=== PATIENT | male | born 1955 | race Caucasian/White ===

== ENCOUNTER 2020-04-23 15:11 | Emergency (ER) | payer MEDICAID, SELFPAY ==
--- NOTE | 2020-04-23 15:33 | ED.GENADULT ---
HPI - General Adult General Chief complaint: Upper Respiratory Symptoms Stated complaint: covid symptoms Time Seen by Provider: 04/23/20 15:19 Source: patient Mode of arrival: ambulatory Limitations: no limitations History of Present Illness HPI narrative: Sore throat and bilateral ear pain since yesterday. No fevers, chills or other upper respiratory symptoms. Currently residing at the [facility] and sent in for COVID testing. Onset (ago): day(s) ( One day) Radiation: non-radiation Severity: mild Relieving factors: none Exacerbating factors: none Associated symptoms: denies other symptoms Related Data Allergies Allergy/AdvReac Type Severity Reaction Status Date / Time No Known Allergies Allergy Unverified 04/02/20 17:11 [No Known Allergies*] Review of Systems Review of Systems: Yes all other systems are reviewed and are negative Constitutional: Constitutional: Reports no additional constitutional complaints, Denies body ache(s), Denies chills, Denies fever(s), Denies headache(s) and Denies weakness Eyes: Eyes: Reports no additional eye complaints and Denies change in vision ENT: Reports system reviewed and no additional complaints, except as documented, Denies dizziness, Reports otalgia, Denies headache(s), Denies nasal congestion, Denies nasal discharge, Denies neck pain and Reports sore throat Cardiovascular: Cardiovascular: Reports no additional cardiovascular complaints, Denies chest pain, Denies leg edema and Denies dyspnea Respiratory: Respiratory: Reports no additional respiratory complaints, Denies cough and Denies dyspnea Gastrointestinal: Gastrointestinal: Reports no additional gastrointestinal complaints, Denies abdominal pain, Denies diarrhea, Denies nausea and Denies vomiting Genitourinary: Genitourinary: Denies urinary incontinence Musculoskeletal: Musculoskeletal: Reports no additional musculoskeletal complaints, Denies back pain, Denies arthralgias, Denies joint swelling, Denies neck pain, Denies numbness and Denies tingling Integumentary/Breasts: Skin/Breast: Reports system reviewed and no additional complaints, except as docu and Denies rash Neurologic: Reports system reviewed and no additional complaints, except as documented, Denies Abnormal speech present, Denies dizziness, Denies headache(s), Denies numbness, Denies tingling and Denies weakness PMFSH Past Medical History Attestation statement: The following information was validated with the patient. Source: obtained from family and nursing notes reviewed Medical History Hernia Surgical History History of hernia surgery Social History Social History Smoking Status: Current every day smoker Use of substances other than those prescribed or required for medical reasons: No Advance Directives: No Advance Directives Information Provided: No Physical Exam Vital Signs and I&O and Narrative: Vital Signs and I&O: Vital Signs Temp 98.3 F 04/23/20 16:00 Pulse 88 04/23/20 16:00 Resp 18 04/23/20 16:00 BP 123/78 04/23/20 16:00 Pulse Ox 98 04/23/20 16:00 Intake & Output 04/22/20 04/23/20 04/23/20 18:59 06:59 18:59 Weight 70.307 kg Body Mass Index 23.6 Const: General: cooperative, healthy appearing, comfortable and no acute distress Orientation/consciousness: patient oriented x3 Limitations: no limitations HENMT: Head: Yes normal to inspection Ears: hearing grossly normal bilaterally General nose exam: Normal external nose present Face and sinus: Yes normal facial exam Mouth: Normal oral and palatal mucosa present Throat: Yes posterior oropharynx normal Eyes: General: appearance normal, both eyes and all related structures Pupils: Equal, round and reactive pupils present Neck: Neck: Yes normal visual inspection Chest: Chest palpation & inspection: normal inspection of the chest Resp: Effort & Inspection: normal respiratory effort Auscultation: clear to auscultation bilaterally Cardio: Rate: regular rate Rhythm: regular rhythm Peripheral pulses: Peripheral pulses 2+ throughout GI: Inspection: Yes normal to inspection Palpation (GI): Soft to palpation and nontender Auscultation: normal bowel sounds Back/Spine/Pelvis: Thoracic/Lumbar Spine: thoracic and lumbar spine normal to inspection Skin: General skin exam: no rashes or lesions noted Neuro: General: patient oriented x3, no focal motor deficits and normal sensation to monofilament Cranial nerves: Yes Equal, round and reactive pupils present Cognition (Neuro): normal cognition Speech: No Abnormal speech present Gait exam (Neuro): Normal gait present Motor exam (neuro): 5/5 motor strength present throughout Extrem: General: Yes normal to inspection Medical Decision Making MDM Narrative Medical decision making narrative: patient here with sore throat and earache since yesterday. Sent in from sober living for COVID testing. Well appearing. Stable vital signs. COVID testing sent. Reviewed worrisome signs and symptoms and when to return to the emergency department. Comfortable discharge home. Discharge Plan Discharge Clinical Impression: Viral infection Patient Disposition: Home, Self-Care Instructions: Viral Syndrome (ED) Additional Instructions: We will call you in 24-48 hrs with results Referrals: Sarina Clark MD [Primary Care Provider] - 2 days Interventions: ED Discharge Assessment Last Done: 04/23/20 16:19 Discharge Date/Time: 04/23/20 16:22
[2020-04-23 16:00] VITALS: BP 123/78; PULSE 88; RESP 18; TEMP 36.8; O2SAT 98; BMI 23.6
== END 2020-04-23 16:22 | disposition home or self-care (01) ==
PROVIDERS: Nurse Practitioner Family; Emergency Provider Internal Medicine; PCP Family Medicine
DX: B34.9 Viral infection, unspecified (principal); Z20.828 Contact with and (suspected) exposure to other viral communicable diseases; J02.9 Acute pharyngitis, unspecified; F17.200 Nicotine dependence, unspecified, uncomplicated
CPT/HCPCS: 87635; 99283

== ENCOUNTER 2021-11-25 09:32 | Emergency (ER) | payer MEDICAID, SELFPAY | END 2021-11-25 11:25 | disposition left against medical advice (07) | PROVIDERS: Emergency Provider Emergency Medicine; PCP Family Medicine | DX: B02.9 Zoster without complications (principal) ==

== ENCOUNTER 2021-12-01 17:53 | Inpatient (IN) | payer MEDICAID, SELFPAY ==
[2021-12-01 18:15] VITALS: BP 145/77; PULSE 70; RESP 16; TEMP 36.7; O2SAT 97
--- NOTE | 2021-12-01 19:43 | PC.ADMIT ---
pt is a 66 y/o Chinese male who arrived to to unit @18:05 from [facility] ED with diagnosis of opioid use disorder and SI. pt signed a cv upon arrival. Patient reports on 11/30, he had used some heroin without intentions to overdose. pt stated he was having a difficult day prior to use. Pt stated he eventually overdosed and was narcaned by bystanders who then rushed him to the hospital. Upon arrival, pt was found to be somnolent and another dose of narcan was administered. Pt reports he has no medical issues but stated he was diagnosed with Bipolar disorder, depression and anxiety. pt reports he is currently homeless, unemployed and has been in and out of several rehabs for opioid use. Prior to this admission, pt has no hx of inpatient psych admit. Patient is pleasant, calm, cooperative, pt reports mood as ok and stated he would like to go out and smoke. pt has active shingles however, lesions are crusted and appear to be healing appropriately. pt maintained appropriate eye contact and expression during admit assessment, speech is clear, coherent, and logical. pt offered no respiratory complaints, skin is warm and dry. vital signs are stable. pt ambulates independently. pt appears hemodynamically stable and offered no complaints. Pt does not appear to be withdrawing at the time of this writing; however, pt will continue to be monitored.
[2021-12-01] MEDS: traZODone HCL 50 MG TABLET PO (21:07)
[2021-12-01] MEDS: hydrOXYzine HCL 25 MG TABLET PO (21:07)
--- NOTE | 2021-12-02 05:24 | PC.NURSE ---
Hospitalist consult ordered. Dr. Cotto notified at 0182 on 12/02/2021. He confirmed the message at 0517 on 12/02/2021.
[2021-12-02 06:00] VITALS: BP 132/64; PULSE 71; RESP 19; TEMP 36.1; O2SAT 96
--- NOTE | 2021-12-02 08:56 | P.CONHOSP_ITS ---
History of Present Illness Data of Consult Service Date: 12/02/21 Primary Care Provider: Sarina Clark MD HPI Reason for consult: Routine Medical H&P 66 yo M admitted to [facility]. Medical consult requested for routine medical H&P per protocol. Patient is seen and examined in their room. They deny any medical complaints at this time with the exception of shingles on his back. He denies any pain. Unable to state when they started. Review of Systems Review of Systems: negative except HPI [facility] Medical History Hernia Surgical History History of hernia surgery Social History Household Members: Other Household Members Other:: pt homeless and lives at times in group home and w/friends Housing: Homeless Do you presently have visiting nurse or other home services: No Patient Tobacco Use Status: Current everyday Tobacco user Tobacco use type: Cigarette Smoked in Last 30 Days: Yes Patient Interested in Nicotine Replacement: Yes (pt states I would rather smoke a cigarette. ) Patient Given Instructions on How to Stop Smoking: No (pt declined smoking cessation) Use of substances other than those prescribed or required for medical reasons: Yes Substance Use Type: Crack/Cocaine, Heroin, IV Drugs, Marijuana, Opiates and Caffiene Substance Use Frequency: Daily Last Used Substance: Days (ago) Last Used Substance Other:: 11/30/21 Currently Displaying Signs/Symptoms of Drug Intoxication Withdrawal: No (Pt denies) Any prior treatment program specific to substance use: Yes (pt reports he was in rehab but relapsed) Have you been hit, kicked, punched, or otherwise hurt by someone within the past year? If so, by whom?: No Do you feel safe in your current relationship?: No Current Relationship Is there a partner from a previous relationship who is making you feel unsafe now?: No Are you made to feel afraid or neglected: No Advance Directives: No Advance Directives Information Provided: No Do you have thoughts of harming others: None Do you have a plan to hurt others: No Plan Recently lost weight without trying: No Poor oral hygiene: Yes Meds Allergies Allergy/AdvReac Type Severity Reaction Status Date / Time No Known Allergies Allergy Unverified 04/02/20 17:11 [No Known Allergies*] Active Medications: Current Medications Acetaminophen (Acetaminophen 325 Mg Tablet) 650 mg PO Q6H PRN PRN Reason: Headache/Pain Mild Scale (1-3) Al Hydroxide/Mg Hydroxide (Magnesium Hydrox/Alum Hydrox 30 Ml Oral.Susp) 30 ml PO Q6H PRN PRN Reason: Heartburn/Nausea Hydroxyzine HCl (Hydroxyzine Hcl 25 Mg Tablet) 25 mg PO BEDTIME PRN PRN Reason: Anxiety Last Admin: 12/01/21 21:07 Dose: 25 mg Documented by: Magnesium Hydroxide (Milk Of Magnesia 30 Ml Oral.Susp) 30 ml PO DAILY PRN PRN Reason: Constipation Trazodone HCl (Trazodone Hcl 50 Mg Tablet) 50 mg PO BEDTIME PRN PRN Reason: Insomnia Last Admin: 12/01/21 21:07 Dose: 50 mg Documented by: Physical Exam Vital Signs and Narrative: Vital Signs: Last Vital Signs Temp 98.1 F 12/01/21 18:15 Pulse 70 12/01/21 18:15 Resp 16 12/01/21 18:15 BP 145/77 H 12/01/21 18:15 Pulse Ox 97 12/01/21 18:15 Const: Other: General - no acute distress, appears comfortable Cardiovascular - regular rate and rhythm, S1-S2 Lungs - normal respiratory effort, clear to auscultation bilaterally, no wheezing Abdomen - soft, nontender, no rebound or guarding Extremities - no edema bilaterally Neuro - awake and alert, no focal deficits; cn 2-12 intact bilaterally Skin - no vesicles noted on the upper back, furthermore they do not appear to be in any specific dermatomal pattern; healing and crusting over Assessment and Plan (1) Routine medical exam: Status: Acute Plan 66 yo M admitted to inpatient psych. Medical consultation sought for routine medical H&P. Pt reports he has zoster and per med claim -- was prescribed valacyclovir on 11/22/20 - there are no active vesicles and do not appear to be in a specific dermatome. In either case, the lesions are now resolving and no vesicles are noted. Patient has been counseled on age appropriate health maintenance as an outpatient. Continue care per primary team. Will sign off. Please re-consult if any issues arise.
--- NOTE | 2021-12-02 14:10 | HO.PSYADMNOT ---
[facility] Date of Service: 12/02/21 Chief Complaint: Opioid disorder Sources of Information: patient interviewed, chart reviewed and crisis/core team assessment reviewed HPI Subjective Notes: Conditional Voluntary Narrative: The patient is a 66-year-old male, single, with no children, unemployed with unstable housing with poor social support referred from the emergency room for suicidal ideation. According to the crisis assessment and the emergency room report, the patient abused of heroin and he overdosed and a front of him use Narcan and called 911. While he was in the emergency room he needed to be treated with Narcan for a 2nd time. The patient was assessed by crisis and since he reported suicidal ideation he was referred to this facility for psychiatric stabilization. On interview the patient reported that he used to use heroin he has been using on and off for several years. He elected that his previous use before this time was 2 or 3 months ago. He stated that he has been feeling more depressed, with anhedonia, lack of energy and feelings of hopelessness. He stated that he had some suicidal thoughts. At the beginning of the interview, he stated that he wanted to finish it old but then later on he was able to contract for safety. Even though that he claimed to be depressed, he is absurd affect does not have correlation with the LAD aged mood. He denied psychotic symptoms such as auditory hallucinations or paranoia, he was able to contract for safety. He stated that he carries a diagnosis of bipolar disorder but he was noncompliant with treatment. He stated that he cannot pay for Vraylar that was prescribed by his primary care physician. Past Psychiatric History: Denies prior psychiatric admissions, denies following any treatment at this moment. Medical Evaluation Reviewed: Yes [facility] Medical History Hernia Surgical History History of hernia surgery Family History: Denies Social History: the patient is the youngest of 4 children, his milestones were achieved at expected age and he was raised mostly by his mother. He stated that his father was involved partially. He attended regular school and graduated. 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 He admitted that he has been using heroin and other drugs for quite a long time but he refused to elaborate. He stated that he has unstable housing for several years Substance History: opioids that started probably in the 20s he refused to elaborate about previous treatment. Also he admitted that he has abused some cocaine before of the incident of overdose. Trauma History: Denies, denies legal encounters Diagnostics Vital Signs (24Hr): Vital Signs - 24 hr 12/01/21 18:15 12/02/21 06:00 Temperature 98.1 F 96.9 F Pulse Rate 70 71 Respiratory Rate 16 19 Blood Pressure 145/77 H 132/64 Pulse Oximetry 97 96 Meds/Allergies Allergies Allergies Allergy/AdvReac Type Severity Reaction Status Date / Time No Known Allergies Allergy Unverified 04/02/20 17:11 [No Known Allergies*] Mental Status Exam Mental Status Exam Patient Appearance: Appropriate Patient Orientation: Person, Place and Situation Level of Consciousness: Awake Patient Behavior: Appropriate and Cooperative Mood Description: Withdrawn Affect Description: Constricted Patient Cognition Impaired: No Ability to Follow Directions: Good Speech Pattern: Clear Memory Description: Intact Hallucinations: None Delusions: Not Present Thought Process: Linear Thought Content: positive for Circumstantial Judgement: Fair Assessment & Plan Assessment & Plan (1) Mood disorder: Status: Acute Code(s): F39 - Unspecified mood [affective] disorder (2) Opioid use disorder: Status: Acute Code(s): F11.90 - Opioid use, unspecified, uncomplicated Plan the patient is an adult male, with limited social support with a long history of opiate use disorder and mood symptoms admitted after an overdose on heroin and fentanyl. He has several psychosocial stressors such as chronic homelessness, limited social support and chronic substance abuse. Plan 1. Gather collateral information. 2. The patient is not on opiate withdrawal well, at this moment no need of comfort meds or CIWA. 3. Start Zyprexa 2.5 mg p.o. q.h.s. as mood stabilizer. Patient educated on: diagnosis and substance abuse Guardian/Caregiver educated on: therapeutic strategies Informed Consent: understands Reason for continued inpatient stay Substantial Risk for: harm to self, inability to function, rapid decompensation and med/psych decompensation
[2021-12-02 14:32] VITALS: BMI 23.9
[2021-12-02] MEDS: Nicotine Polacrilex 2 MG GUM BUCCAL (17:54)
[2021-12-02 19:51] VITALS: BP 135/72; PULSE 72; RESP 16; TEMP 36.4; O2SAT 97
[2021-12-02] MEDS: hydrOXYzine HCL 25 MG TABLET PO (21:11)
[2021-12-02] MEDS: traZODone HCL 50 MG TABLET PO (21:11)
[2021-12-03] MEDS: traZODone HCL 50 MG TABLET PO ×2 (01:41→20:45)
[2021-12-03 07:45] VITALS: BP 124/62; PULSE 68; RESP 19; TEMP 36.2; O2SAT 100
--- NOTE | 2021-12-03 13:50 | PM.EVENT ---
Event Note Date of Service: 12/03/21 Event Note: Consult requested for shingle lesion left leg with redness surrounding Patient reports multiple lesions frequently - he refers to them as shingles and has had them all over numerous times before. was much worse last week. denies pain or itching. dry lesions with no active drainage. no fluctuance or induration. no warmth or tenderness. does not appear to be infected. no antibiotics indicated at this time can do chlorhexadine washes as outpatient outpatient follow up with dermatology avoid picking/scratching
--- NOTE | 2021-12-03 14:37 | PC.NURSE ---
Scabbing lesions noted left lower leg 1. dime sized 2. quarter sized with redness surrounding. No inflammation noted. Pt states lesions are due to shingles. No tenderness reported. Will continue to monitor. Scabbed lesions noted upper back. Guadalupe FARIAS evaluated lesions on left lower leg. States lesions are not infected and not related to shingles. Continue to monitor and keep clean.
--- NOTE | 2021-12-03 15:59 | HO.PSYCHPN ---
Subjective Subjective Date of Service: 12/03/21 Reason For Visit: Opioid disorder Subjective Notes: Conditional Voluntary Interim History: The nursing staff reported the patient slept with p.r.n. medication, he has been pleasant and cooperative. On interview the patient denies new symptoms he wants to smoker and he agreed to use the nicotine patches and gums. He reports some cravings to opioids and we discussed at length his treatment options. He does not want to go to the methadone clinic anymore, he stated that he stop treatment for more than a month ago and he is interested in trying naltrexone. We are starting now on mirtazapine and Zyprexa for mood stabilizing and depression. Mental Status Exam Mental Status Exam Patient Appearance: Well Grooomed Patient Orientation: Person, Place, Time and Situation Level of Consciousness: Awake Patient Behavior: Cooperative Mood Description: Calm Affect Description: Constricted Patient Cognition Impaired: No Ability to Follow Directions: Good Speech Pattern: Clear Memory Description: Intact Hallucinations: None Delusions: Not Present Thought Process: Linear Thought Content: positive for Circumstantial Judgement: Fair Diagnostics Vital Signs (24Hr): Vital Signs - 24 hr 12/02/21 19:51 12/03/21 07:45 Temperature 97.6 F 97.2 F Pulse Rate 72 68 Respiratory Rate 16 19 Blood Pressure 135/72 124/62 Pulse Oximetry 97 100 BMI result Body Mass Index 23.9 Medications Medications Current Medications Acetaminophen (Acetaminophen 325 Mg Tablet) 650 mg PO Q6H PRN PRN Reason: Headache/Pain Mild Scale (1-3) Al Hydroxide/Mg Hydroxide (Magnesium Hydrox/Alum Hydrox 30 Ml Oral.Susp) 30 ml PO Q6H PRN PRN Reason: Heartburn/Nausea Hydroxyzine HCl (Hydroxyzine Hcl 25 Mg Tablet) 25 mg PO BEDTIME PRN PRN Reason: Anxiety Last Admin: 12/02/21 21:11 Dose: 25 mg Documented by: Magnesium Hydroxide (Milk Of Magnesia 30 Ml Oral.Susp) 30 ml PO DAILY PRN PRN Reason: Constipation Nicotine Polacrilex (Nicotine Polacrilex 2 Mg Gum) 2 mg BUCCAL Q2H PRN PRN Reason: nicotine withdrawal Last Admin: 12/02/21 17:54 Dose: 2 mg Documented by: Trazodone HCl (Trazodone Hcl 50 Mg Tablet) 50 mg PO BEDTIME PRN PRN Reason: Insomnia Last Admin: 12/03/21 01:41 Dose: 50 mg Documented by: Allergies Allergies Allergy/AdvReac Type Severity Reaction Status Date / Time No Known Allergies Allergy Unverified 04/02/20 17:11 [No Known Allergies*] Assessment & Plan Assessment & Plan (1) Mood disorder: Status: Acute Code(s): F39 - Unspecified mood [affective] disorder (2) Opioid use disorder: Status: Acute Code(s): F11.90 - Opioid use, unspecified, uncomplicated Plan the patient is an adult male, with limited social support with a long history of opiate use disorder and mood symptoms admitted after an overdose on heroin and fentanyl. He has several psychosocial stressors such as chronic homelessness, limited social support and chronic substance abuse. Plan 1. Gather collateral information. 2. Start naltrexone 50 mg p.o. daily to target cravings. 3. Rest the same I spent ___20___ minutes with the patient and/or on the patient floor today, greater than?50% of which was spent counseling/coordinating care. Reason for contiued inpatient stay Substantial Risk for: inability to function, rapid decompensation and med/psych decompensation
[2021-12-03 18:00] VITALS: BP 136/75; PULSE 58; RESP 18; TEMP 36.5; O2SAT 98
[2021-12-03] MEDS: Mirtazapine 7.5 MG TABLET PO (20:42)
[2021-12-03] MEDS: OLANZapine 2.5 MG TABLET PO (20:42)
[2021-12-04 08:48] VITALS: BP 130/73; PULSE 63; RESP 16; TEMP 36.3; O2SAT 100
[2021-12-04] MEDS: Nicotine 21 MG PATCH.TD24 TRANSDERMA (09:02)
[2021-12-04] MEDS: Naltrexone HCl 50 MG TABLET PO (09:03)
--- NOTE | 2021-12-04 14:00 | HO.PSYCHPN ---
Subjective Subjective Date of Service: 12/04/21 Reason For Visit: depression Subjective Notes: Conditional Voluntary Interim History: Has been slightly withdrawn. Sleeping okay. Reports today that his mood is gradually getting better. No suicidal thoughts. Feeling well cared for. Does report feeling slightly more tired this morning. Reports appetite is good. Trying to attend groups. Noted discussion with primary team around potential for naltrexone. Otherwise no concerns regarding Remeron and Zyprexa. Medication Compliance: Yes Side effects from medications: No Attending Groups: Intermittent Review of Systems Acute medical concerns: No Medical Review of Systems: unchanged Review of Systems Review of Systems Unremarkable Mental Status Exam Mental Status Exam Patient Appearance: Well Grooomed Patient Orientation: Person, Place, Time and Situation Level of Consciousness: Awake Patient Behavior: Cooperative Mood Description: Calm Affect Description: Constricted Patient Cognition Impaired: No Ability to Follow Directions: Good Speech Pattern: Clear Memory Description: Intact Diagnostics Vital Signs (24Hr): Vital Signs - 24 hr 12/03/21 18:00 12/04/21 08:48 Temperature 97.7 F 97.4 F Pulse Rate 58 63 Respiratory Rate 18 16 Blood Pressure 136/75 130/73 Pulse Oximetry 98 100 BMI result Body Mass Index 23.9 Medications Medications Current Medications Acetaminophen (Acetaminophen 325 Mg Tablet) 650 mg PO Q6H PRN PRN Reason: Headache/Pain Mild Scale (1-3) Al Hydroxide/Mg Hydroxide (Magnesium Hydrox/Alum Hydrox 30 Ml Oral.Susp) 30 ml PO Q6H PRN PRN Reason: Heartburn/Nausea Hydroxyzine HCl (Hydroxyzine Hcl 25 Mg Tablet) 25 mg PO BEDTIME PRN PRN Reason: Anxiety Last Admin: 12/02/21 21:11 Dose: 25 mg Documented by: Magnesium Hydroxide (Milk Of Magnesia 30 Ml Oral.Susp) 30 ml PO DAILY PRN PRN Reason: Constipation Mirtazapine (Mirtazapine 7.5 Mg Tablet) 7.5 mg PO BEDTIME [facility] Last Admin: 12/03/21 20:42 Dose: 7.5 mg Documented by: Naltrexone HCl (Naltrexone Hcl 50 Mg Tablet) 50 mg PO DAILY [facility] Last Admin: 12/04/21 09:03 Dose: 50 mg Documented by: Nicotine (Nicotine 21 Mg Patch.Td24) 21 mg TRANSDERMA DAILY [facility] Last Admin: 12/04/21 09:02 Dose: 21 mg Documented by: Nicotine Polacrilex (Nicotine Polacrilex 2 Mg Gum) 2 mg BUCCAL Q2H PRN PRN Reason: nicotine withdrawal Last Admin: 12/02/21 17:54 Dose: 2 mg Documented by: Olanzapine (Olanzapine 2.5 Mg Tablet) 2.5 mg PO BEDTIME [facility] Last Admin: 12/03/21 20:42 Dose: 2.5 mg Documented by: Trazodone HCl (Trazodone Hcl 50 Mg Tablet) 50 mg PO BEDTIME PRN PRN Reason: Insomnia Last Admin: 12/03/21 20:45 Dose: 50 mg Documented by: Allergies Allergies Allergy/AdvReac Type Severity Reaction Status Date / Time No Known Allergies Allergy Unverified 04/02/20 17:11 [No Known Allergies*] Assessment & Plan Assessment & Plan (1) Mood disorder: Status: Acute Code(s): F39 - Unspecified mood [affective] disorder (2) Opioid use disorder: Status: Acute Code(s): F11.90 - Opioid use, unspecified, uncomplicated Plan the patient is an adult male, with limited social support with a long history of opiate use disorder and mood symptoms admitted after an overdose on heroin and fentanyl. He has several psychosocial stressors such as chronic homelessness, limited social support and chronic substance abuse. Plan 1. Gather collateral information. 2. Start naltrexone 50 mg p.o. daily to target cravings. 3. Rest the same 12/04/2021: No changes to primary team treatment plan I spent minutes with the patient and/or on the patient floor today, greater than?50% of which was spent counseling/coordinating care. Patient educated on: medication risk/benefits Informed Consent: understands Reason for contiued inpatient stay Substantial Risk for: rapid decompensation
[2021-12-04 18:00] VITALS: BP 132/71; PULSE 76; RESP 18; TEMP 36.8; O2SAT 99
[2021-12-04] MEDS: Nicotine Polacrilex 2 MG GUM BUCCAL (18:15)
[2021-12-04] MEDS: OLANZapine 2.5 MG TABLET PO (20:44)
[2021-12-04] MEDS: traZODone HCL 50 MG TABLET PO ×2 (20:44→21:58)
[2021-12-04] MEDS: Mirtazapine 7.5 MG TABLET PO (20:44)
[2021-12-05 08:40] VITALS: BP 134/69; PULSE 70; RESP 16; TEMP 36.4; O2SAT 98
[2021-12-05] MEDS: Naltrexone HCl 50 MG TABLET PO (09:32)
[2021-12-05] MEDS: Nicotine 21 MG PATCH.TD24 TRANSDERMA (09:32)
--- NOTE | 2021-12-05 13:29 | MHC.RECOVSUP ---
Recovery Support note: Patient is a 66 year old Hebrew speaking male on S1. This ticket writer attempted to meet with patient on 12/04 however he reported he was too tired to talk. On 12/05 patient was laying in bed however awake and willing to meet with this ticket writer. Patient reports using heroin nasally when I get bored , once a week or every other week. Patient reports he would like to stop using, acknowledging the risk of overdose and . Patient states it's all fentanyl, it's not even worth it. Patient reports no issues regarding the naltrexone however is unable to determine whether it has been helpful at this time. Discussed recovery supports with patient including [facility] [place], [facility] and recovery coaching. Patient reports he spends most of his time in [place] and [place]. Patient is agreeable to meeting with a volleyball coach to discuss community supports further and to receive information on recovery centers. Patient expressed interest in discharging, stating he would be able to find somewhere to go. Discussed with patient the benefit of getting into a program as opposed to going to a friend's place. Encouraged patient to discuss this further with his oncology social work tomorrow.
--- NOTE | 2021-12-05 14:31 | P.PNPSI_ITS ---
Subjective Subjective Date of Service: 12/05/21 Reason For Visit: depression Interim History: out of room more today. Frustrated regarding other patient on the unit who has been loud disruptive. Reports that his mood is in a much better space. He is hoping for discharge as soon as possible and reports having friends in places that he can stay. Adamantly denies suicidal thoughts. No psychosis or agitation. No medication concerns Medication Compliance: Yes Side effects from medications: No Attending Groups: Yes Review of Systems Acute medical concerns: No Review of Systems Review of Systems Unremarkable Mental Status Exam Mental Status Exam Patient Appearance: Well Grooomed Patient Orientation: Person, Place, Time and Situation Level of Consciousness: Awake Patient Behavior: Cooperative Mood Description: Calm Affect Description: Appropriate Patient Cognition Impaired: No Ability to Follow Directions: Good Speech Pattern: Clear Memory Description: Intact Diagnostics Vital Signs (24Hr): Vital Signs - 24 hr 12/04/21 18:00 12/05/21 08:40 Temperature 98.2 F 97.6 F Pulse Rate 76 70 Respiratory Rate 18 16 Blood Pressure 132/71 134/69 Pulse Oximetry 99 98 BMI result Body Mass Index 23.9 Medications Medications Current Medications Acetaminophen (Acetaminophen 325 Mg Tablet) 650 mg PO Q6H PRN PRN Reason: Headache/Pain Mild Scale (1-3) Al Hydroxide/Mg Hydroxide (Magnesium Hydrox/Alum Hydrox 30 Ml Oral.Susp) 30 ml PO Q6H PRN PRN Reason: Heartburn/Nausea Hydroxyzine HCl (Hydroxyzine Hcl 25 Mg Tablet) 25 mg PO BEDTIME PRN PRN Reason: Anxiety Last Admin: 12/02/21 21:11 Dose: 25 mg Documented by: Magnesium Hydroxide (Milk Of Magnesia 30 Ml Oral.Susp) 30 ml PO DAILY PRN PRN Reason: Constipation Mirtazapine (Mirtazapine 7.5 Mg Tablet) 7.5 mg PO BEDTIME [facility] Last Admin: 12/04/21 20:44 Dose: 7.5 mg Documented by: Naltrexone HCl (Naltrexone Hcl 50 Mg Tablet) 50 mg PO DAILY [facility] Last Admin: 12/05/21 09:32 Dose: 50 mg Documented by: Nicotine (Nicotine 21 Mg Patch.Td24) 21 mg TRANSDERMA DAILY [facility] Last Admin: 12/05/21 09:32 Dose: 21 mg Documented by: Nicotine Polacrilex (Nicotine Polacrilex 2 Mg Gum) 2 mg BUCCAL Q2H PRN PRN Reason: nicotine withdrawal Last Admin: 12/04/21 18:15 Dose: 2 mg Documented by: Olanzapine (Olanzapine 2.5 Mg Tablet) 2.5 mg PO BEDTIME [facility] Last Admin: 12/04/21 20:44 Dose: 2.5 mg Documented by: Trazodone HCl (Trazodone Hcl 50 Mg Tablet) 50 mg PO BEDTIME PRN PRN Reason: Insomnia Last Admin: 12/04/21 21:58 Dose: 50 mg Documented by: Allergies Allergies Allergy/AdvReac Type Severity Reaction Status Date / Time No Known Allergies Allergy Unverified 04/02/20 17:11 [No Known Allergies*] Assessment & Plan Assessment & Plan (1) Mood disorder: Status: Acute Code(s): F39 - Unspecified mood [affective] disorder (2) Opioid use disorder: Status: Acute Code(s): F11.90 - Opioid use, unspecified, uncomplicated Plan the patient is an adult male, with limited social support with a long history of opiate use disorder and mood symptoms admitted after an overdose on heroin and fentanyl. He has several psychosocial stressors such as chronic homelessness, limited social support and chronic substance abuse. Plan 1. Gather collateral information. 2. Start naltrexone 50 mg p.o. daily to target cravings. 3. Rest the same 12/05/2021: very eager for discharge. No changes to primary team treatment plan I spent minutes with the patient and/or on the patient floor today, greater than?50% of which was spent counseling/coordinating care. Reason for contiued inpatient stay Substantial Risk for: rapid decompensation
[2021-12-05 18:00] VITALS: BP 133/78; PULSE 73; RESP 14; TEMP 36.6; O2SAT 99
--- NOTE | 2021-12-05 18:39 | MHC.RECOVSUP ---
? Reason for consult Recovery Support o Current location: [address] o Identified substance use concern: Heroin - Support ? Intervention: o Community resources provided o Harm reduction discussion ? Plan: <del>o</del> <del>Referral</del> <del>to</del> <del>[facility]del> <del>o</del> <del>Bed</del> <del>search</del> <del>in</del> <del>progress</del> <del>to</del> <del>o</del> <del>Follow</del> <del>up</del> <del>tomorrow</del> <del>o</del> <del>Patient</del> <del>awaiting</del> <del>crisis</del> <del>evaluation</del> o Patient to follow up with [facility] after discharge ? Additional information: Met patient and we talk Harm reduction.. Patient was given resources to [facility] [place]...
[2021-12-05] MEDS: Mirtazapine 7.5 MG TABLET PO (19:34)
[2021-12-05] MEDS: traZODone HCL 50 MG TABLET PO ×2 (19:38→20:40)
[2021-12-05] MEDS: hydrOXYzine HCL 25 MG TABLET PO (21:47)
[2021-12-05] MEDS: OLANZapine 2.5 MG TABLET PO (21:48)
[2021-12-06 06:00] VITALS: BP 122/78; PULSE 69; RESP 18; TEMP 36.2; O2SAT 98
[2021-12-06] MEDS: Naltrexone HCl 50 MG TABLET PO (08:22)
[2021-12-06] MEDS: Nicotine 21 MG PATCH.TD24 TRANSDERMA (08:24)
--- NOTE | 2021-12-06 08:46 | P.PNPSI_ITS ---
Subjective Subjective Date of Service: 12/06/21 Reason For Visit: depression Subjective Notes: Conditional Voluntary Healthcare Proxy: No Guardianship: No Interim History: Patient depressed somewhat withdrawn open to addiction consult. Knows he picks a narcotics when bored he does understand risks particularly with fentanyl overdose and recently needed to be Narcan x2 Mental Status Exam Mental Status Exam Patient Appearance: Well Grooomed Patient Orientation: Person, Place, Time and Situation Level of Consciousness: Awake Patient Behavior: Cooperative Mood Description: Calm, Constricted and Apprehensive Affect Description: Appropriate Patient Cognition Impaired: No Ability to Follow Directions: Good Speech Pattern: Clear Memory Description: Intact Diagnostics Vital Signs (24Hr): Vital Signs - 24 hr 12/05/21 18:00 Temperature 97.9 F Pulse Rate 73 Respiratory Rate 14 Blood Pressure 133/78 Pulse Oximetry 99 BMI result Body Mass Index 23.9 Medications Medications Current Medications Acetaminophen (Acetaminophen 325 Mg Tablet) 650 mg PO Q6H PRN PRN Reason: Headache/Pain Mild Scale (1-3) Al Hydroxide/Mg Hydroxide (Magnesium Hydrox/Alum Hydrox 30 Ml Oral.Susp) 30 ml PO Q6H PRN PRN Reason: Heartburn/Nausea Hydroxyzine HCl (Hydroxyzine Hcl 25 Mg Tablet) 25 mg PO BEDTIME PRN PRN Reason: Anxiety Last Admin: 12/05/21 21:47 Dose: 25 mg Documented by: Magnesium Hydroxide (Milk Of Magnesia 30 Ml Oral.Susp) 30 ml PO DAILY PRN PRN Reason: Constipation Mirtazapine (Mirtazapine 7.5 Mg Tablet) 7.5 mg PO BEDTIME [facility] Last Admin: 12/05/21 19:34 Dose: 7.5 mg Documented by: Naltrexone HCl (Naltrexone Hcl 50 Mg Tablet) 50 mg PO DAILY [facility] Last Admin: 12/06/21 08:22 Dose: 50 mg Documented by: Nicotine (Nicotine 21 Mg Patch.Td24) 21 mg TRANSDERMA DAILY [facility] Last Admin: 12/06/21 08:24 Dose: 21 mg Documented by: Nicotine Polacrilex (Nicotine Polacrilex 2 Mg Gum) 2 mg BUCCAL Q2H PRN PRN Reason: nicotine withdrawal Last Admin: 12/04/21 18:15 Dose: 2 mg Documented by: Olanzapine (Olanzapine 2.5 Mg Tablet) 2.5 mg PO BEDTIME [facility] Last Admin: 12/05/21 21:48 Dose: 2.5 mg Documented by: Trazodone HCl (Trazodone Hcl 50 Mg Tablet) 50 mg PO BEDTIME PRN PRN Reason: Insomnia Last Admin: 12/05/21 20:40 Dose: 50 mg Documented by: Allergies Allergies Allergy/AdvReac Type Severity Reaction Status Date / Time No Known Allergies Allergy Unverified 04/02/20 17:11 [No Known Allergies*] Assessment & Plan Assessment & Plan (1) Mood disorder: Status: Acute Code(s): F39 - Unspecified mood [affective] disorder (2) Opioid use disorder: Status: Acute Code(s): F11.90 - Opioid use, unspecified, uncomplicated Plan the patient is an adult male, with limited social support with a long history of opiate use disorder and mood symptoms admitted after an overdose on heroin and fentanyl. He has several psychosocial stressors such as chronic homelessness, limited social support and chronic substance abuse. Plan 1. Gather collateral information. 2. Start naltrexone 50 mg p.o. daily to target cravings. 3. Rest the same 12/05/2021: very eager for discharge. No changes to primary team treatment plan 12/06/2021 Patient gives history of response to [facility]. Information given regarding bipolar disorder patient agreeable to addiction consult I spent minutes with the patient and/or on the patient floor today, greater than?50% of which was spent counseling/coordinating care. Reason for contiued inpatient stay Substantial Risk for: inability to function, rapid decompensation and med/psych decompensation
[2021-12-06] MEDS: Cariprazine HCl 1.5 MG CAPSULE PO (16:26)
[2021-12-06 18:00] VITALS: BP 128/77; PULSE 66; RESP 66; TEMP 36.3; O2SAT 99
[2021-12-06] MEDS: OLANZapine 2.5 MG TABLET PO (21:52)
[2021-12-06] MEDS: traZODone HCL 50 MG TABLET PO ×2 (21:53→23:12)
[2021-12-06] MEDS: hydrOXYzine HCL 25 MG TABLET PO (21:56)
[2021-12-07 07:10] VITALS: BP 110/66; PULSE 82; RESP 19; TEMP 36.6; O2SAT 98
[2021-12-07] MEDS: Naltrexone HCl 50 MG TABLET PO (09:12)
[2021-12-07] MEDS: Nicotine 21 MG PATCH.TD24 TRANSDERMA (09:14)
--- NOTE | 2021-12-07 16:31 | PM.EVENT ---
Event Note Date of Service: 12/07/21 Event Note: Addiction consult: Patient interested in restarting suboxone. Reports he is discharging in the morning and wants to return to [facility] for [facility] treatment Rec: -D/C Naltrexone -Suboxone 2mg QD to start -full note to follow
--- NOTE | 2021-12-07 17:06 | HO.PSYCHPN ---
Subjective Subjective Date of Service: 12/07/21 Reason For Visit: depression Subjective Notes: Conditional Voluntary Interim History: the nursing staff reported the patient has been fully compliant with treatment he slept well with trazodone. On interview the patient denies new symptoms he states that he is going to work with the staff for proper discharge. Mental Status Exam Mental Status Exam Patient Appearance: Well Grooomed Patient Orientation: Person, Place and Situation Level of Consciousness: Awake Patient Behavior: Guarded and Cooperative Mood Description: Withdrawn and Constricted Affect Description: Constricted Patient Cognition Impaired: No Ability to Follow Directions: Good Speech Pattern: Clear Hallucinations: None Delusions: Not Present Thought Process: Linear Thought Content: positive for Circumstantial Judgement: Fair Diagnostics Vital Signs (24Hr): Vital Signs - 24 hr 12/06/21 18:00 12/07/21 07:10 Temperature 97.4 F 97.9 F Pulse Rate 66 82 Respiratory Rate 66 H 19 Blood Pressure 128/77 110/66 Pulse Oximetry 99 98 BMI result Body Mass Index 23.9 Medications Medications Current Medications Acetaminophen (Acetaminophen 325 Mg Tablet) 650 mg PO Q6H PRN PRN Reason: Headache/Pain Mild Scale (1-3) Al Hydroxide/Mg Hydroxide (Magnesium Hydrox/Alum Hydrox 30 Ml Oral.Susp) 30 ml PO Q6H PRN PRN Reason: Heartburn/Nausea Cariprazine (Cariprazine Hcl 1.5 Mg Capsule) 1.5 mg PO DAILY [facility] Last Admin: 12/06/21 16:26 Dose: 1.5 mg Documented by: Hydroxyzine HCl (Hydroxyzine Hcl 25 Mg Tablet) 25 mg PO BEDTIME PRN PRN Reason: Anxiety Last Admin: 12/06/21 21:56 Dose: 25 mg Documented by: Magnesium Hydroxide (Milk Of Magnesia 30 Ml Oral.Susp) 30 ml PO DAILY PRN PRN Reason: Constipation Mirtazapine (Mirtazapine 7.5 Mg Tablet) 7.5 mg PO BEDTIME [facility] Last Admin: 12/06/21 21:55 Dose: Not Given Documented by: Naltrexone HCl (Naltrexone Hcl 50 Mg Tablet) 50 mg PO DAILY [facility] Last Admin: 12/07/21 09:12 Dose: 50 mg Documented by: Nicotine (Nicotine 21 Mg Patch.Td24) 21 mg TRANSDERMA DAILY [facility] Last Admin: 12/07/21 09:14 Dose: 21 mg Documented by: Nicotine Polacrilex (Nicotine Polacrilex 2 Mg Gum) 2 mg BUCCAL Q2H PRN PRN Reason: nicotine withdrawal Last Admin: 12/04/21 18:15 Dose: 2 mg Documented by: Olanzapine (Olanzapine 2.5 Mg Tablet) 2.5 mg PO BEDTIME [facility] Last Admin: 12/06/21 21:52 Dose: 2.5 mg Documented by: Trazodone HCl (Trazodone Hcl 50 Mg Tablet) 50 mg PO BEDTIME PRN PRN Reason: Insomnia Last Admin: 12/06/21 23:12 Dose: 50 mg Documented by: Allergies Allergies Allergy/AdvReac Type Severity Reaction Status Date / Time No Known Allergies Allergy Unverified 04/02/20 17:11 [No Known Allergies*] Assessment & Plan Assessment & Plan (1) Mood disorder: Status: Acute Code(s): F39 - Unspecified mood [affective] disorder (2) Opioid use disorder: Status: Acute Code(s): F11.90 - Opioid use, unspecified, uncomplicated Plan the patient is an adult male, with limited social support with a long history of opiate use disorder and mood symptoms admitted after an overdose on heroin and fentanyl. He has several psychosocial stressors such as chronic homelessness, limited social support and chronic substance abuse. Plan 1. Gather collateral information. 2. Start naltrexone 50 mg p.o. daily to target cravings. 3. Rest the same 4. start discharge planning I spent __20____ minutes with the patient and/or on the patient floor today, greater than?50% of which was spent counseling/coordinating care. Reason for contiued inpatient stay Substantial Risk for: inability to function, rapid decompensation and med/psych decompensation
[2021-12-07 20:22] VITALS: BP 127/73; PULSE 74; RESP 18; TEMP 36.8; O2SAT 97
[2021-12-07] MEDS: Mirtazapine 7.5 MG TABLET PO (20:41)
[2021-12-07] MEDS: OLANZapine 2.5 MG TABLET PO (20:41)
[2021-12-07] MEDS: traZODone HCL 50 MG TABLET PO (20:46)
[2021-12-08] MEDS: traZODone HCL 50 MG TABLET PO ×2 (01:15→20:05)
[2021-12-08 08:00] VITALS: BP 139/78; PULSE 91; RESP 19; TEMP 36.3; O2SAT 98
[2021-12-08] MEDS: Naltrexone HCl 50 MG TABLET PO (08:42)
--- NOTE | 2021-12-08 11:19 | HO.ADDICT_ITS ---
History of Present Illness Date of Service: 12/07/2021 Chief Complaint: depression Reason for Consult: opioid use disorder currently on naltrexone ?buprenorphine Requesting physician: Augustine Pierson Discussed with referring provider: Yes Sources of Information: patient interviewed and chart reviewed HPI Narrative: Patient is a 66 year old male currently admitted to unit for worsening depression and suicidal ideation. Consult requested as patient reported opioid use and was started on naltrexone at start of this admission. Patient seen by this customs entry writer and RSRN in room 177. Patient awake, alert, pleasant and engaged in interview. He reports several years of using heroin [place] on and off. States that his last was prior to admission. Reports using btwn 2-5 bags several days per week. Reports more than 20 substance related overdoses. Reports history of treatment for OUD with methadone (dose up to 80mg) and briefly buprenorphine. He is initially somewhat indifferent to treatment options for OUD, then verbalizing desire to restart buprenorphine. Reviewed triggers to opioid use, which patient identifies as boredom , but with further questioning appears to be related to ruminating thoughts. He was seen briefly at [facility] more than a year ago, and identified this site as preferable to him based on location. Unstable housing situation and limited to no social supports. Past Psychiatric History: Denies prior psychiatric admissions, denies following any treatment at this moment. Review of Systems Review of Systems Yes all other systems are reviewed and are negative Diagnostics Vital Signs (24Hr): Vital Signs - 24 hr 12/07/21 20:22 12/08/21 08:00 Temperature 98.2 F 97.3 F Pulse Rate 74 91 Respiratory Rate 18 19 Blood Pressure 127/73 139/78 Pulse Oximetry 97 98 BMI result Body Mass Index 23.9 Mental Status Exam Mental Status Exam Patient Appearance: Well Grooomed and Appropriate Level of Consciousness: Awake and Appropriate Patient Behavior: Appropriate, Talkative and Cooperative Affect Description: Cheerful Judgement: Fair Medications Medications Current Medications Acetaminophen (Acetaminophen 325 Mg Tablet) 650 mg PO Q6H PRN PRN Reason: Headache/Pain Mild Scale (1-3) Al Hydroxide/Mg Hydroxide (Magnesium Hydrox/Alum Hydrox 30 Ml Oral.Susp) 30 ml PO Q6H PRN PRN Reason: Heartburn/Nausea Cariprazine (Cariprazine Hcl 1.5 Mg Capsule) 1.5 mg PO DAILY [facility] Last Admin: 12/08/21 08:44 Dose: Not Given Documented by: Hydroxyzine HCl (Hydroxyzine Hcl 25 Mg Tablet) 25 mg PO BEDTIME PRN PRN Reason: Anxiety Last Admin: 12/06/21 21:56 Dose: 25 mg Documented by: Magnesium Hydroxide (Milk Of Magnesia 30 Ml Oral.Susp) 30 ml PO DAILY PRN PRN Reason: Constipation Mirtazapine (Mirtazapine 7.5 Mg Tablet) 7.5 mg PO BEDTIME [facility] Last Admin: 12/07/21 20:41 Dose: 7.5 mg Documented by: Nicotine (Nicotine 21 Mg Patch.Td24) 21 mg TRANSDERMA DAILY [facility] Last Admin: 12/08/21 08:43 Dose: Not Given Documented by: Nicotine Polacrilex (Nicotine Polacrilex 2 Mg Gum) 2 mg BUCCAL Q2H PRN PRN Reason: nicotine withdrawal Last Admin: 12/04/21 18:15 Dose: 2 mg Documented by: Olanzapine (Olanzapine 2.5 Mg Tablet) 2.5 mg PO BEDTIME [facility] Last Admin: 12/07/21 20:41 Dose: 2.5 mg Documented by: Trazodone HCl (Trazodone Hcl 50 Mg Tablet) 50 mg PO BEDTIME PRN PRN Reason: Insomnia Last Admin: 12/08/21 01:15 Dose: 50 mg Documented by: Allergies Allergies Allergy/AdvReac Type Severity Reaction Status Date / Time No Known Allergies Allergy Unverified 04/02/20 17:11 [No Known Allergies*] Assessment & Plan Assessment & Plan (1) Opioid use disorder: Status: Acute Code(s): F11.90 - Opioid use, unspecified, uncomplicated Assessment and Plan: * D/C Naltrexone * start Suboxone low dose 2mg and titrate as appropriate (can be done by outpatient provider as patient will be discharging) I spent ___35___ minutes with the patient and/or on the patient floor today, greater than?50% of which was spent counseling/coordinating care. PMFSH Past Medical History Medical History Hernia Surgical History Surgical History History of hernia surgery Social History Social History Household Members: Other Household Members Other:: pt homeless and lives at times in long term and w/friends Housing: Homeless Do you presently have visiting nurse or other home services: No Patient Tobacco Use Status: Current everyday Tobacco user Tobacco use type: Cigarette Smoked in Last 30 Days: Yes Patient Interested in Nicotine Replacement: Yes (pt states I would rather smoke a cigarette. ) Patient Given Instructions on How to Stop Smoking: No (pt declined smoking cessation) Use of substances other than those prescribed or required for medical reasons: Yes Substance Use Type: Crack/Cocaine, Heroin, IV Drugs, Marijuana, Opiates and Caffiene Substance Use Frequency: Daily Last Used Substance: Days (ago) Last Used Substance Other:: 11/30/21 Currently Displaying Signs/Symptoms of Drug Intoxication Withdrawal: No Any prior treatment program specific to substance use: Yes (pt reports he was in rehab but relapsed) Have you been hit, kicked, punched, or otherwise hurt by someone within the past year? If so, by whom?: No Do you feel safe in your current relationship?: No Current Relationship Is there a partner from a previous relationship who is making you feel unsafe now?: No Are you made to feel afraid or neglected: No Advance Directives: No Advance Directives Information Provided: No Do you have thoughts of harming others: None Do you have a plan to hurt others: No Plan Recently lost weight without trying: No Poor oral hygiene: Yes service: No Sexual orientation: Straight/Heterosexual
--- NOTE | 2021-12-08 14:57 | P.PNPSI_ITS ---
Subjective Subjective Date of Service: 12/08/21 Reason For Visit: depression Subjective Notes: Conditional Voluntary Interim History: Nursing staff reported the patient has been pleasant and cooperative. He is fully compliant with treatment. He is able to contract for safety. On interview the patient reports that he is doing fine, he met with Tami heredia from substance abuse program and he wants to going to Suboxone for opiate use disorder. Mental Status Exam Mental Status Exam Patient Appearance: Well Grooomed Patient Orientation: Person, Place, Time and Situation Level of Consciousness: Awake Patient Behavior: Cooperative Mood Description: Withdrawn Affect Description: Constricted Patient Cognition Impaired: No Ability to Follow Directions: Good Speech Pattern: Clear Memory Description: Intact Hallucinations: None Delusions: Not Present Thought Process: Intact Thought Content: positive for Circumstantial Judgement: Fair Diagnostics Vital Signs (24Hr): Vital Signs - 24 hr 12/07/21 20:22 12/08/21 08:00 Temperature 98.2 F 97.3 F Pulse Rate 74 91 Respiratory Rate 18 19 Blood Pressure 127/73 139/78 Pulse Oximetry 97 98 BMI result Body Mass Index 23.9 Medications Medications Current Medications Acetaminophen (Acetaminophen 325 Mg Tablet) 650 mg PO Q6H PRN PRN Reason: Headache/Pain Mild Scale (1-3) Al Hydroxide/Mg Hydroxide (Magnesium Hydrox/Alum Hydrox 30 Ml Oral.Susp) 30 ml PO Q6H PRN PRN Reason: Heartburn/Nausea Cariprazine (Cariprazine Hcl 1.5 Mg Capsule) 1.5 mg PO DAILY [facility] Last Admin: 12/08/21 08:44 Dose: Not Given Documented by: Hydroxyzine HCl (Hydroxyzine Hcl 25 Mg Tablet) 25 mg PO BEDTIME PRN PRN Reason: Anxiety Last Admin: 12/06/21 21:56 Dose: 25 mg Documented by: Magnesium Hydroxide (Milk Of Magnesia 30 Ml Oral.Susp) 30 ml PO DAILY PRN PRN Reason: Constipation Mirtazapine (Mirtazapine 7.5 Mg Tablet) 7.5 mg PO BEDTIME [facility] Last Admin: 12/07/21 20:41 Dose: 7.5 mg Documented by: Nicotine (Nicotine 21 Mg Patch.Td24) 21 mg TRANSDERMA DAILY [facility] Last Admin: 12/08/21 08:43 Dose: Not Given Documented by: Nicotine Polacrilex (Nicotine Polacrilex 2 Mg Gum) 2 mg BUCCAL Q2H PRN PRN Reason: nicotine withdrawal Last Admin: 12/04/21 18:15 Dose: 2 mg Documented by: Olanzapine (Olanzapine 2.5 Mg Tablet) 2.5 mg PO BEDTIME [facility] Last Admin: 12/07/21 20:41 Dose: 2.5 mg Documented by: Trazodone HCl (Trazodone Hcl 50 Mg Tablet) 50 mg PO BEDTIME PRN PRN Reason: Insomnia Last Admin: 12/08/21 01:15 Dose: 50 mg Documented by: Allergies Allergies Allergy/AdvReac Type Severity Reaction Status Date / Time No Known Allergies Allergy Unverified 04/02/20 17:11 [No Known Allergies*] Assessment & Plan Assessment & Plan (1) Opioid use disorder: Status: Acute Code(s): F11.90 - Opioid use, unspecified, uncomplicated Assessment and Plan: * D/C Naltrexone * start Suboxone low dose 2mg and titrate as appropriate (can be done by outpatient provider as patient will be discharging) I spent __20____ minutes with the patient and/or on the patient floor today, greater than?50% of which was spent counseling/coordinating care. Reason for contiued inpatient stay Substantial Risk for: inability to function, rapid decompensation and med/psych decompensation
[2021-12-08 20:03] VITALS: BP 137/71; PULSE 70; RESP 16; TEMP 36.3; O2SAT 100
[2021-12-08] MEDS: Mirtazapine 7.5 MG TABLET PO (20:05)
[2021-12-08] MEDS: OLANZapine 2.5 MG TABLET PO (20:05)
--- NOTE | 2021-12-09 07:59 | PM.PSYDC ---
DS: Providers Provider Date of Service: 12/09/21 Date of admission: 12/01/21 17:53 Date of discharge: 12/09/21 Primary care physician: Sarina Clark MD Consults: 12/01/21 20:34 Consult to Hospitalist Routine Consulting Provider: Hospitalist Reason For Exam: OSH admission 12/03/21 11:06 Consult to Hospitalist Routine Consulting Provider: Hospitalist Reason For Exam: shingle lesion left leg with redness surrounding 12/06/21 22:14 Addiction Medicine Routine Consulting Provider: Tami Wyatt Reason for consultation: naltrexone vs suboxone ? recommendations Has provider been notified: No Attending physician on discharge: Hari Smith DS: Diagnosis Discharge Diagnosis (1) Opioid use disorder: Status: Acute Mental Status Exam Mental Status Exam Patient Appearance: Well Grooomed Patient Orientation: Person, Place, Time and Situation Level of Consciousness: Awake and Appropriate Patient Behavior: Cooperative Mood Description: Calm Affect Description: Appropriate Patient Cognition Impaired: No Ability to Follow Directions: Good Speech Pattern: Clear Memory Description: Intact Hallucinations: None Delusions: Not Present Thought Process: Intact, Goal Oriented and Linear Thought Content: positive for Circumstantial Judgement: Fair DS: Summary Hospital Course Hospital Course: The patient was admitted from the ED due to suicidal ideation, please see the HPI of the admission note for further details. On admission, he reported that besides carrying the diagnosis of opioid use disorder, he has bipolar disorder but currently, he was not taking any medications since the copayment of Vraylar was very expensive. We discussed, risks, benefits, side effects and alternatives and he agreed to start Zyprexa as a mood stabilizer and Remeron as an antidepressant. The patient was able to participate on groups, he was future oriented and he adamantly denied suicidal ideation. We discussed about treatment options regarding opioid use disorder and he initially liked Naltrexone but later, after consultation with our substance abuse prescriber, he asked to go to a Suboxone clinic so Naltrexone was discontinued. Since there were no safety concerns, and the patient reported improvement of his symptoms, discharge planning was discussed. Time spent discussing smoking cessation with patient: 3 to 10 minutes Status at Discharge Cognitive/behavioral status at discharge: At baseline Functional status at discharge: independent ambulation Overall status at discharge: patient is back to baseline Time Spent with Patient Time attestation: Total time spent providing and/or coordinating discharge services: Time spent: Less than 30 minutes Discharge Plan Discharge Patient Disposition: Home, Self-Care Discharge Diagnosis: Bipolar disorder Opioid use disorder Referrals: [facility] (therapists) [Other] - 12/09/21 1:00 pm (Appt scheduled with Unique Shearer IN OFFICE on , 12/09/21 @ 1 PM.) [facility] (medication prescriber) [Other] - 01/04/22 1:40 pm (Initial appt scheduled for 01/04/22 @ 1:40 PM with [facility]. Second appt scheduled for 02/01/22 @ 10:20 AM with [facility].) Sarina Clark MD [Primary Care Provider] - 1 Week Discharge Medications: New trazodone 50 mg Tablet 50 mg PO BEDTIME PRN (Reason: Insomnia) 30 Days Qty: 30 0RF olanzapine 2.5 mg Tablet 2.5 mg PO BEDTIME 30 Days Qty: 30 0RF mirtazapine 7.5 mg Tablet 7.5 mg PO BEDTIME 30 Days Qty: 30 0RF naloxone [Narcan] 4 mg/actuation spray,non-aerosol 4 mg intranasal Q3M PRN (Reason: opioid overdose) Qty: 2 0RF Rx Instructions: spray 1 dose into ONE nostril; alternate nostrils w each dose until help arrives Discharge Orders: Discharge Order (Routine); Ordered 12/09/21 Ordered By: Hari Smith Diet: advance to usual diet Activity on Discharge: As tolerated Stand Alone Forms: Patient Portal Discharge page Care Plan Goals: Care plan goals achieved on this admission Health Concerns: Follow up with outpatient PCP Plan of Treatment: Continue medication management Substance use disorder treatment Assessment: Adult male with mood disorder, substance abuse disorder and several psychosocial stressors, admitted for suicidality, restarted on mood stabilizers and psychotropics with a referral to Suboxone Clinic. No safety concerns at this moment.
[2021-12-09] MEDS: Nicotine 21 MG PATCH.TD24 TRANSDERMA (09:15)
[2021-12-09] MEDS: Cariprazine HCl 1.5 MG CAPSULE PO (09:15)
--- NOTE | 2021-12-09 09:55 | PC.NURSE ---
patient is alert and oriented x4. He is pleasant, calm and cooperative. Speech is clear, logical and coherent. Patient is independent care and ambulation. Patient reports feeling great this morning and ready for discharge. Discharge education and materials provided to patient. Belongings accounted for and also given to patient
== END 2021-12-09 11:30 | disposition home or self-care (01) | DRG 753 ==
PROVIDERS: Admitting Provider Psychiatry & Neurology Psychiatry; PCP Family Medicine; Visit Provider Psychiatry & Neurology Psychiatry
DX: F31.9 Bipolar disorder, unspecified (principal); R45.851 Suicidal ideations; F11.20 Opioid dependence, uncomplicated; F17.210 Nicotine dependence, cigarettes, uncomplicated; Z59.01 Sheltered homelessness; Z71.6 Tobacco abuse counseling; Z79.899 Other long term (current) drug therapy

== ENCOUNTER 2021-12-10 11:20 | Emergency (ER) | payer MEDICAID, SELFPAY ==
[2021-12-10 11:27] VITALS: BP 110/82; BP 115/80; PULSE 104; PULSE 87; RESP 18; TEMP 37.5; O2SAT 96; O2SAT 98; BMI 25.8
--- NOTE | 2021-12-10 11:35 | ED.PSYCH ---
HPI - Psych General Chief Complaint: Psychiatric Symptoms Stated Complaint: SI,VOLUNTARY,CALM/COOP PER EMS Time Seen by Provider: 12/10/21 11:35 Source: patient and EMS Mode of arrival: EMS Limitations: no limitations History of Present Illness HPI Narrative: 66 y/o male with history of opioid use disorder, mood disorder just discharged from yesterday who presents back to the ER with suicidal ideation with plan to jump in front of a car. He reports being discharged too soon because he wanted cigarettes. He went to his friends house last night and had worsening depression. He states he woke up this morning not feeling good at all. He wants to be admitted again. He denies recent drug use, last used 1 week ago before admission. MD complaint: suicidal ideation and feels depressed Onset (ago): unknown History of same: Yes Relieving factors: medication and therapy Exacerbating factors: none Associated psychiatric symptoms: depression and suicidal ideation Associated symptoms: headache Treatments prior to arrival: placed on mental health hold If self harm: admits thoughts of self harm and has plan Details of plan: jump in front of car Related Data Previous Rx's Medication Instructions Recorded mirtazapine 7.5 mg tablet 7.5 mg PO BEDTIME 30 Days #30 tab 12/09/21 naloxone 4 mg/actuation nasal 4 mg INTRANASAL Q3M PRN #2 ea 12/09/21 spray (Narcan) olanzapine 2.5 mg tablet 2.5 mg PO BEDTIME 30 Days #30 tab 12/09/21 trazodone 50 mg tablet 50 mg PO BEDTIME PRN 30 Days #30 12/09/21 tab Allergies Allergy/AdvReac Type Severity Reaction Status Date / Time No Known Allergies Allergy Unverified 04/02/20 17:11 [No Known Allergies*] Review of Systems Review of Systems: Constitutional: No Fever, No Chills ENT/Mouth: No sore throat, No Rhinorrhea, No Swallowing Difficulty Eyes: No Eye Pain, No Swelling, No Redness Cardiovascular: No Chest Pain, No SOB, No Orthopnea, No Edema Respiratory: No Cough, No Sputum, No Wheezing, No dyspnea Gastrointestinal: No Nausea, No Vomiting, No Diarrhea, No abdominal Pain Genitourinary: No Dysuria, No Urinary Frequency, No Hematuria Musculoskeletal: No joint pain, No Myalgias Skin: No Skin Lesions, No rash Neuro: No Weakness, No Numbness, + Dizziness, + Headache Psych: + Anxiety/Panic, + Depression, +SI, No HI, No AH/VH Heme/Lymph: No Bruising, No Lymphadenopathy Endocrine: No Polyuria, No Polydipsia PMFSH Past Medical History Medical History Hernia Surgical History History of hernia surgery Social History Social History Household Members: Other Household Members Other:: pt homeless and lives at times in skilled nursing and w/friends Housing: Homeless Do you presently have visiting nurse or other home services: No Alcohol intake: current Alcohol intake frequency: does not drink Patient Tobacco Use Status: Current everyday Tobacco user Tobacco use type: Cigarette Smoked in Last 30 Days: Yes Use of substances other than those prescribed or required for medical reasons: Refusing to respond Substance Use Type: Crack/Cocaine, Heroin, IV Drugs, Marijuana, Opiates and Caffiene Advance Directives: No Advance Directives Information Provided: No service: No Sexual orientation: Straight/Heterosexual Physical Exam Vital Signs: Vital Signs: Last Vital Signs Temp 99.5 F 12/10/21 11:27 Pulse 87 12/10/21 11:27 Resp 16 12/10/21 12:00 BP 115/80 12/10/21 11:27 Pulse Ox 98 12/10/21 11:27 BMI result Body Mass Index 25.8 Appearance: Alert. Oriented X3. No acute distress. Eyes: Pupils equal, round and reactive to light. ENT: Pharynx normal. Neck: Normal inspection. Neck supple. CVS: Normal heart rate and rhythm. Pulses normal. Respiratory: No respiratory distress. Breath sounds normal. Abdomen: Soft and nontender. +BS x4 Skin: Skin warm and dry. Normal skin color. Normal skin turgor. No rashes. Extremities: No lower extremity edema. Neuro: Oriented X 3. No motor deficit. No sensory deficit. CN II-XII intact. Course Course Course Narrative: 66 y/o male with history of mood disorder, substance use disorder, recent admission to presenting back within 24 of discharge with ongoing SI and depression. SW from [facility] to come speak with him. Labs are unremarkable. Will placing physician observation. Physician observation started at 12:58am. Patient placed in physician observation because patient is awaiting [facility] evaluation for the possible need of inpatient psych admission. At the time observation was started patient's vital signs were stable. Patient is alert and oriented. Neuro exam is non-focal. CV: RRR and lungs are clear. Will continue to monitor. Reevaluation(s) Reevaluation #1: Patient seen by the care team. He will be discharged to the living room. He is outpatient resources not actively suicidal. Stable for DC. Physician observation discontinued at this time. Dispo is to the living room. Time: 13:52 [facility] - Psych Lab Data Result diagrams: 12/10/21 11:54 12/10/21 11:54 Labs: Lab Results 12/10/21 12/10/21 12/10/21 Range/Units 11:54 11:54 11:54 WBC 6.9 (4.8-10.8) X10*3/uL RBC 4.78 (4.60-5.80) X10*6/uL Hgb 15.0 (14.0-18.0) g/dl Hct 44.0 (42.0-52.0) % MCV 92.1 (80.0-98.0) fL MCH 31.4 (27.0-33.0) pg MCHC 34.1 (31.0-36.0) g/dl RDW 13.5 (11.0-16.0) % Plt Count 222 (160-400) X10*3/uL MPV 9.6 (9.4-12.4) fL Immature Gran % (Auto) 0.4 (0.0-0.4) % Neut % (Auto) 64.1 (45-73) % Lymph % (Auto) 26.8 (20-40) % Callaway % (Auto) 6.1 (2-11) % Eos % (Auto) 1.6 (0-4) % Baso % (Auto) 1.0 (0-2) % Lymph # (Auto) 1.8 (1.2-4.9) X10*3/uL Callaway # (Auto) 0.4 (0.1-1.2) X10*3/uL Eos # (Auto) 0.1 (0.0-0.4) X10*3/uL Baso # (Auto) 0.1 (0.0-0.2) X10*3/uL Abs Immat Gran (auto) 0.03 (0.00-0.03) X10*3/uL Absolute Neuts (auto) 4.4 (2.0-8.3) x10*3/uL Absolute Nucleated RBC 0.000 (0.0-0.012) X10*3/uL Nucleated RBC % (auto) 0.0 (0.0-0.2) /100WBC Sodium 140 (135-145) mmol/L Potassium 4.3 (3.3-5.1) mmol/L Chloride 106 (96-108) mmol/L Carbon Dioxide 26 (22-29) mmol/L Anion Gap 12 (12-20) BUN 13 (9-16) mg/dL Creatinine 1.28 (0.5-1.4) mg/dL Estim Creat Clear Calc 51.2 Estimated GFR 56 Random Glucose 91 (60-115) mg/dL Calcium 9.4 (8.4-10.2) mg/dL Total Bilirubin 0.7 (0.0-1.0) mg/dL Direct Bilirubin 0.2 (0.0-0.5) mg/dL AST 12 (5-37) U/L ALT 11 (0-40) U/L Alkaline Phosphatase 58 (39-117) U/L Total Protein 7.1 (6.5-8.0) g/dL Albumin 4.1 (3.5-5.0) g/dL Urine Opiates Screen (Not Detect) Urine Fentanyl Screen (Not Detect) Ur Barbiturates Screen (Not Detect) Ur Phencyclidine Scrn (Not Detect) Ur Amphetamines Screen (Not Detect) U Benzodiazepines Scrn (Not Detect) Urine Cocaine Screen (Not Detect) U Marijuana (THC) Screen (Not Detect) Ethyl Alcohol mg/dL COVID-19 (ZACH) Negative (Negative) COVID-19 Clin Com See Note Influenza Type A (IGNACIO) (Negative) Influenza Type B (IGNACIO) (Negative) Influenza A & B Note 12/10/21 12/10/21 12/10/21 Range/Units 11:54 12:09 13:10 WBC (4.8-10.8) X10*3/uL RBC (4.60-5.80) X10*6/uL Hgb (14.0-18.0) g/dl Hct (42.0-52.0) % MCV (80.0-98.0) fL MCH (27.0-33.0) pg MCHC (31.0-36.0) g/dl RDW (11.0-16.0) % Plt Count (160-400) X10*3/uL MPV (9.4-12.4) fL Immature Gran % (Auto) (0.0-0.4) % Neut % (Auto) (45-73) % Lymph % (Auto) (20-40) % Callaway % (Auto) (2-11) % Eos % (Auto) (0-4) % Baso % (Auto) (0-2) % Lymph # (Auto) (1.2-4.9) X10*3/uL Callaway # (Auto) (0.1-1.2) X10*3/uL Eos # (Auto) (0.0-0.4) X10*3/uL Baso # (Auto) (0.0-0.2) X10*3/uL Abs Immat Gran (auto) (0.00-0.03) X10*3/uL Absolute Neuts (auto) (2.0-8.3) x10*3/uL Absolute Nucleated RBC (0.0-0.012) X10*3/uL Nucleated RBC % (auto) (0.0-0.2) /100WBC Sodium (135-145) mmol/L Potassium (3.3-5.1) mmol/L Chloride (96-108) mmol/L Carbon Dioxide (22-29) mmol/L Anion Gap (12-20) BUN (9-16) mg/dL Creatinine (0.5-1.4) mg/dL Estim Creat Clear Calc Estimated GFR Random Glucose (60-115) mg/dL Calcium (8.4-10.2) mg/dL Total Bilirubin (0.0-1.0) mg/dL Direct Bilirubin (0.0-0.5) mg/dL AST (5-37) U/L ALT (0-40) U/L Alkaline Phosphatase (39-117) U/L Total Protein (6.5-8.0) g/dL Albumin (3.5-5.0) g/dL Urine Opiates Screen Not Detected (Not Detect) Urine Fentanyl Screen POSITIVE H (Not Detect) Ur Barbiturates Screen Not Detected (Not Detect) Ur Phencyclidine Scrn Not Detected (Not Detect) Ur Amphetamines Screen Not Detected (Not Detect) U Benzodiazepines Scrn Not Detected (Not Detect) Urine Cocaine Screen Not Detected (Not Detect) U Marijuana (THC) Screen Not Detected (Not Detect) Ethyl Alcohol < 10 mg/dL COVID-19 (ZACH) (Negative) COVID-19 Clin Com Influenza Type A (IGNACIO) Negative (Negative) Influenza Type B (IGNACIO) Negative (Negative) Influenza A & B Note See Note Discharge Plan Discharge Clinical Impression: Depression Patient Disposition: Home, Self-Care Instructions: Depression (DC) Additional Instructions: Follow up with the Living Room upon discharge Do not use drugs Take all of your prescribed medications as directed Follow up with your doctor and therapist as soon as possible. Prescriptions: No Action trazodone 50 mg Tablet 50 mg PO BEDTIME PRN (Reason: Insomnia) 30 Days Qty: 30 0RF olanzapine 2.5 mg Tablet 2.5 mg PO BEDTIME 30 Days Qty: 30 0RF mirtazapine 7.5 mg Tablet 7.5 mg PO BEDTIME 30 Days Qty: 30 0RF naloxone [Narcan] 4 mg/actuation spray,non-aerosol 4 mg intranasal Q3M PRN (Reason: opioid overdose) Qty: 2 0RF Rx Instructions: spray 1 dose into ONE nostril; alternate nostrils w each dose until help arrives
[2021-12-10 12:00] VITALS: RESP 16
[2021-12-10 12:05] LABS: MANUAL DIFF FLAG NO
[2021-12-10 12:06] LABS: Basophils Absolute Auto 0.1 X10*3/uL (0.0-0.2); Eosinophils Absolute Auto 0.1 X10*3/uL (0.0-0.4); Eosinophils Percent Auto 1.6 % (0-4); Imm Gran Abs Auto 0.03 X10*3/uL (0.00-0.03); Imm Gran Pct Auto 0.4 % (0.0-0.4); Lymphocytes Absolute Auto 1.8 X10*3/uL (1.2-4.9); Lymphocytes Percent Auto 26.8 % (20-40); Mean Corpuscular HGB Conc 34.1 g/dl (31.0-36.0); Mean Corpuscular Hemoglobin 31.4 pg (27.0-33.0); Mean Corpuscular Volume 92.1 fL (80.0-98.0); Mean Platelet Volume 9.6 fL (9.4-12.4); Monocytes Absolute Auto 0.4 X10*3/uL (0.1-1.2); Monocytes Percent Auto 6.1 % (2-11); Neutrophils Absolute Auto 4.4 x10*3/uL (2.0-8.3); Neutrophils Percent Auto 64.1 % (45-73); Platelet Count 222 X10*3/uL (160-400); Red Blood Count 4.78 X10*6/uL (4.60-5.80); Red Cell Distribution Width 13.5 % (11.0-16.0); White Blood Count 6.9 X10*3/uL (4.8-10.8)
[2021-12-10 12:26] LABS: Ethanol < 10 mg/dL
[2021-12-10 12:28] LABS: Alanine Aminotransferase 11 U/L (0-40); Albumin Level 4.1 g/dL (3.5-5.0); Alkaline Phosphatase 58 U/L (39-117); Anion Gap 12 (12-20); Aspartate Amino Transferase 12 U/L (5-37); Bilirubin Direct 0.2 mg/dL (0.0-0.5); Bilirubin Total 0.7 mg/dL (0.0-1.0); Blood Urea Nitrogen 13 mg/dL (9-16); Calcium 9.4 mg/dL (8.4-10.2); Carbon Dioxide 26 mmol/L (22-29); Chloride 106 mmol/L (96-108); Creatinine Clr Calc Pharmacy 51.2; Estimated Glomerular Filt Rate 56; Glucose Random 91 mg/dL (60-115); Potassium 4.3 mmol/L (3.3-5.1); Sodium 140 mmol/L (135-145); Total Protein 7.1 g/dL (6.5-8.0)
[2021-12-10 12:35] LABS: IDNOW Serial# 55D5AD1C; Influenza A Negative (Negative); Influenza B2 Negative (Negative)
[2021-12-10 12:38] LABS: COVID-19 Test Negative (Negative); IDNOW Serial# 08D9AD1C
--- NOTE | 2021-12-10 13:39 | MHC.CARE ---
Pt is a 66 year old male who re-presented to [facility] after being discharged from the inpatient psychiatric unit on 12/09. Pt expressed passive SI which appears to be in the context of housing instability. CARE Team and Pt discussed different levels care. Pt expressed interest in the Living Room in [place]. CARE Team spoke with the Living Room who will tien Pt an overnight stay. Pt is in agreement to go to the Living Room and follow up with treatment recommendations from his discharge yesterday 12/09 by in the inpatient psychiatric team. CARE Team provided this information to JARRETT Garay. Pt provided with [facility] crisis information.
[2021-12-10 13:45] LABS: Amphetamine Screen Urine Not Detected (Not Detect); Barbiturates, Urine Not Detected (Not Detect); Benzodiazepines Screen Urine Not Detected (Not Detect); Cannabinoid Screen Urine Not Detected (Not Detect); Cocaine Screen Urine Not Detected (Not Detect); Fentanyl, urine POSITIVE (Not Detect); Opiate Screen Urine Not Detected (Not Detect); Phencyclidine Screen Urine Not Detected (Not Detect)
[2021-12-10 14:36] LABS: Appearance Urine CLEAR; Color Urine YELLOW; Glucose Urine UA NEG (NEG); Leukocyte Esterase Urine NEG (NEG); Nitrite Urine NEG (NEG); UACC Culture Trigger NO; Urine Blood TRACE (NEG); Urine Ketones NEG (NEG); Urine Protein NEG (NEG-TRACE)
[2021-12-10 14:46] LABS: Mucus Urine TRACE /LPF; Squamous Epithelial Cell Urine TRACE /LPF; WBC Urine 0-2 /HPF (0-4)
== END 2021-12-10 14:41 | disposition home or self-care (01) ==
PROVIDERS: Physician Assistant; Emergency Provider Emergency Medicine
DX: F32.A Depression, unspecified (principal); R45.851 Suicidal ideations; F11.90 Opioid use, unspecified, uncomplicated; F41.9 Anxiety disorder, unspecified; F17.200 Nicotine dependence, unspecified, uncomplicated; Z79.899 Other long term (current) drug therapy; Z20.822 Contact with and (suspected) exposure to COVID-19
CPT/HCPCS: 36415; 80053; 80307; 81001; 81003; 82077; 82248; 85025; 87502; 87635; 99284

== ENCOUNTER 2022-04-15 21:24 | Emergency (ER) | payer MEDICAID, SELFPAY ==
--- NOTE | ~2022-04-15 | XR_ITS ---
EXAMINATION: XR CHEST 2 VIEWS CLINICAL INFORMATION: Cough. COMPARISON: None. TECHNIQUE: Frontal and lateral views of the chest were obtained. FINDINGS: The heart, great vessels, pulmonary vasculature and mediastinum are normal. The lungs show no focal infiltrate, effusion or pneumothorax. There is no acute osseous abnormality. XR/XR chest 2V IMPRESSION: No active cardiopulmonary disease.
[2022-04-15 21:30] VITALS: BP 122/78; BP 127/68; PULSE 95; PULSE 96; RESP 17; TEMP 36.8; O2SAT 97; O2SAT 98; BMI 24.6
[2022-04-15 21:40] VITALS: BP 127/68; PULSE 96; RESP 17; TEMP 36.8; O2SAT 97
--- NOTE | 2022-04-15 21:40 | PC.NURSE ---
Pt. on cardiac rn at this time
--- NOTE | 2022-04-15 21:54 | ED.OVERDOSE ---
HPI - Overdose General Chief Complaint: Overdose Stated Complaint: OD Time Seen by Provider: 04/15/22 21:54 Source: patient and EMS Mode of arrival: EMS History of Present Illness HPI Narrative: 66-year-old male without significant past medical history presents via EMS stating that he overdosed on a half bag of heroin this evening. Patient states that he was on a pass to get blood work, bought some drugs from someone in [place] and then used. He denies intentionally trying to overdose and denies any suicidal homicidal ideations. Patient received a total of 32 mg of Narcan in the field and CPR had been initiated by the snf. When EMS arrived on scene patient was still receiving CPR, he vomited and there are reports that the vomitus was read but patient state [facility] this evening. Related Data Previous Rx's Medication Instructions Recorded mirtazapine 7.5 mg tablet 7.5 mg PO BEDTIME 30 days #30 tabs 12/09/21 naloxone 4 mg/actuation nasal 4 mg intranasal Q3M PRN opioid 12/09/21 spray (Narcan) overdose #2 ea olanzapine 2.5 mg tablet 2.5 mg PO BEDTIME 30 days #30 tabs 12/09/21 trazodone 50 mg tablet 50 mg PO BEDTIME PRN Insomnia 30 12/09/21 days #30 tabs Allergies Allergy/AdvReac Type Severity Reaction Status Date / Time No Known Allergies Allergy Unverified 04/02/20 17:11 [No Known Allergies*] Review of Systems Review of Systems: Pertinent positives and negatives as stated in HPI 10 point review of systems is otherwise negative. [facility] Past Medical History Source: nursing notes reviewed Medical History Hernia Surgical History History of hernia surgery Social History Social History Household Members: Other Household Members Other:: pt homeless and lives at times in correction and w/friends Housing: Homeless Do you presently have visiting nurse or other home services: No Alcohol intake: never Patient Tobacco Use Status: Current everyday Tobacco user Tobacco use type: Cigarette Use of substances other than those prescribed or required for medical reasons: Yes Substance Use Type: Heroin Last Used Substance: Just Prior to Admission Advance Directives: No Advance Directives Information Provided: No service: No Sexual orientation: Straight/Heterosexual Physical Exam Vital Signs: Vital Signs: Last Vital Signs Temp 98.2 F 04/15/22 21:40 Pulse 82 04/15/22 22:56 Resp 18 04/15/22 22:56 BP 125/75 04/15/22 22:47 Pulse Ox 97 04/15/22 22:56 O2 Del Method 04/15/22 22:56 BMI result Body Mass Index 24.6 VITAL SIGNS: Reviewed. GENERAL: Well developed, well nourished, in no acute distress. HEAD: Normocephalic/atraumatic EYES: PERRLA, EOMI EARS: Ext canals without abnormality NOSE: Nares patent bilateral OROPHARYNX: no oral lesions noted, posterior pharynx clear and non-erythematous without noted tonsillar enlargement/erythema/exudates NECK: Supple, no adenopathy LUNGS: Normal breath sounds. No adventitious sounds or accessory muscle use. SpO2<97> CARDIOVASCULAR: Regular rate and rhythm without noted murmurs ABDOMEN: Soft, non-tender, non-distended with bowel sounds. MUSCULOSKELETAL: No tenderness, deformities, or effusions noted on gross inspection. EXTREMITIES: No cyanosis, clubbing or edema. SKIN: Inspection of the skin reveals no rashes NEUROLOGIC: Alert and oriented x 4. Strength and sensation to light touch were grossly intact x 4. Course Course Course Narrative: 66-year-old male with history and clinical presentation consistent with accidental overdose ever required CPR and 32 mg of Narcan. Patient is alert and currently denying suicidal ideation. He will undergo an DARIUS evaluation and will be discharged with home Narcan after DARIUS eval. CXR without acute findings. Reevaluation(s) Reevaluation #1: Patient placed in physician observation because the patient needed more time for DARIUS Eval. At the time observation was started the patient's vital signs were stable, patient is alert and oriented, neuro: Nonfocal, CV RRR, lungs clear Time: 22:47 Discharge Plan Discharge Clinical Impression: Drug overdose, Substance use disorder Patient Disposition: Still a Patient Prescriptions: No Action trazodone 50 mg Tablet 50 mg PO BEDTIME PRN (Reason: Insomnia) 30 Days Qty: 30 0RF olanzapine 2.5 mg Tablet 2.5 mg PO BEDTIME 30 Days Qty: 30 0RF mirtazapine 7.5 mg Tablet 7.5 mg PO BEDTIME 30 Days Qty: 30 0RF naloxone [Narcan] 4 mg/actuation spray,non-aerosol 4 mg intranasal Q3M PRN (Reason: opioid overdose) Qty: 2 0RF Rx Instructions: spray 1 dose into ONE nostril; alternate nostrils w each dose until help arrives
[2022-04-15] MEDS: Acetaminophen 325 MG TABLET 975 MG PO (22:12)
[2022-04-15] MEDS: Ibuprofen 400 MG TABLET PO (22:13)
[2022-04-15 22:15] VITALS: PULSE 94; RESP 14; O2SAT 97
[2022-04-15 22:47] VITALS: BP 125/75; PULSE 85; RESP 15; O2SAT 97
[2022-04-15 22:56] VITALS: PULSE 82; RESP 18; O2SAT 97
--- NOTE | 2022-04-16 00:24 | MHC.CARE ---
CARE team received a consult for pt. Pt reports that he is currently at the [facility] in [place] but because he relapsed it is highly unlikely he will be able to return. Pt states he had been clean for months and is really disappointed in himself. He states that he had a pass today for medical and went looking for drugs. He is remorseful and very down on himself. Pt will remain the night and will see the recovery team in the morning. Pt and ED provider aware.
[2022-04-16 02:46] VITALS: BP 122/71; PULSE 71; RESP 12; O2SAT 98
[2022-04-16 05:16] VITALS: BP 116/59; PULSE 60; RESP 12; O2SAT 98
[2022-04-16 06:00] VITALS: BP 111/67; PULSE 62; RESP 12; O2SAT 98
--- NOTE | 2022-04-16 09:24 | HO.SUDE ---
SUDE Patient is a 66 year old Lao speaking male who presented to [facility] ED via EMS after an accidental overdose. This bid writer met with patient to discuss substance use and treatment options. Patient reports he was sober for 3-4 months prior to this relapse. Patient has been staying at the [facility] in [place] and that he was stupid and decided to use. Patient presents as remorseful and regrets this action. Patient states he snorted a match head amount and this resulted in his near fatal overdose. Patient reports this is not his first overdose. Patient states he was previously on methadone for a period of time but got off of it due to difficulties getting to the clinic. Patient reports he does not experience cravings. Patient has a history of psychiatric admissions, most recently in November of this year. Sarah at [facility] reports patient is able to return to their program but first they will have him go to [facility] before returning. Sarah reports they have a bed lined up for him and that a staff person will pick him up. Discussed with patient and ED provider. Plan for patient to discharge and follow up with the treatment arranged for him.
== END 2022-04-16 09:06 | disposition home or self-care (01) ==
PROVIDERS: Emergency Provider Student in an Organized Health Care Education/Training Program
DX: T40.1X1A Poisoning by heroin, accidental (unintentional), initial encounter (principal); R06.02 Shortness of breath; Y92.9 Unspecified place or not applicable; Z79.899 Other long term (current) drug therapy; F17.210 Nicotine dependence, cigarettes, uncomplicated; Z71.6 Tobacco abuse counseling; Z71.51 Drug abuse counseling and surveillance of drug abuser
CPT/HCPCS: 71046; 99284; 99285

== ENCOUNTER 2022-12-17 09:58 | Emergency (ER) | payer MEDICAID, SELFPAY ==
--- NOTE | ~2022-12-17 | CT_ITS ---
EXAMINATION: CT HEAD WITHOUT CONTRAST CLINICAL INFORMATION: Found unresponsive COMPARISON: February 27, 2020 TECHNIQUE: Contiguous axial imaging was performed from the skull base to vertex without intravenous administration of contrast. This CT examination was performed using dose optimization techniques as appropriate, variously including the following: *Automated exposure control *Adjustment of mA and/or kV according to patient size (this includes techniques or standardized protocols for targeted exams where dose is matched to indication/reason for exam; i.e. extremities or head) *Use of iterative reconstruction technique DLP: 675.77 mGy-cm FINDINGS: No intracranial hemorrhage is identified. No abnormal extra-axial fluid collection is seen. No significant mass effect or midline structure shift is noted. Mercado-white matter interface is maintained. The ventricles, sulci, and cisterns appear unremarkable. There is some diminished density seen within the insular cortices bilaterally which may be related to microangiopathy. The calvarium is intact. Paranasal sinuses and mastoid air cells unremarkable. Pterygoid plates intact. Temporomandibular joints unremarkable. CT/CT head/brain wo IV con IMPRESSION: No acute intracranial pathology.
--- NOTE | ~2022-12-17 | XR_ITS ---
EXAMINATION: XR ANKLE, RIGHT CLINICAL INFORMATION: Tender lateral malleolus COMPARISON: None available. TECHNIQUE: AP, lateral, and mortise views of the right ankle. FINDINGS: There is no evidence of acute fracture or dislocation of the right ankle. Ankle mortise appears intact. There is some soft tissue edema seen about the anterior aspect of the ankle. Visualized joint spaces maintained. Plantar calcaneal spur identified. XR/XR ankle RT 2V IMPRESSION: No significant bony abnormality of the right ankle identified.
--- NOTE | ~2022-12-17 | CT_ITS ---
EXAMINATION: CT CERVICAL SPINE WITHOUT CONTRAST CLINICAL INFORMATION: Found unresponsive COMPARISON: February 27, 2020 TECHNIQUE: CT cervical spine with coronal and sagittal reconstructions. This CT examination was performed using dose optimization techniques as appropriate, variously including the following: *Automated exposure control *Adjustment of mA and/or kV according to patient size (this includes techniques or standardized protocols for targeted exams where dose is matched to indication/reason for exam; i.e. extremities or head) *Use of iterative reconstruction technique DLP: 310.16 mGy-cm FINDINGS: No abnormal prevertebral soft tissue swelling is seen. The paraspinal muscle fat planes are maintained. No acute cervical spine fracture is seen. There is cervical spondylosis with articular space narrowing involving the anterior arch of C1 and C2. There is disc space narrowing with marginal spurring seen C2-C7 and most significant at the C5-C7 levels. There is spurring of the joints of Luschka causing anterior neural foraminal encroachment at the C5-C6 and C6-C7 levels bilaterally. There is facet arthropathy present on the left C2-C4 and on the right C3-C4 and C6-T1. Pterygoid plates intact. Visualized thyroid gland unremarkable. No apical lung lesion is seen. There are mild changes of centrilobular emphysema present. Visualized paranasal sinuses and mastoid air cells unremarkable. CT/CT cervical spine wo IV con IMPRESSION: No acute cervical spine fracture identified. Cervical spondylosis as described. Fleischner guidelines were followed.
--- NOTE | 2022-12-17 10:06 | ED.GENADULT ---
HPI - General Adult General Chief complaint: Overdose Stated complaint: UNRESP,+NARCAN,PAIN STIM ONLY PER EMS Time Seen by Provider: 12/17/22 10:05 Source: patient, EMS and RN notes reviewed Mode of arrival: EMS Limitations: no limitations History of Present Illness HPI narrative: Patient is a 67-year-old male with history of OUD presenting to the ED via EMS after being found unresponsive. Total of 6mg Narcan administered by EMS. Patient arrives awake and alert, reports snorting one bag of heroin and one dime bag of cocaine, and does not remember any events after that. He denies intentional overdose, denies suicidal or homicidal ideation. He now reports pain from the top of my head down to my toenails. Denies chest pain or shortness of breath. States he has not used any heroin in the past month or so. MD complaint: drug overdose Onset (ago): minute(s) Treatments prior to arrival: other (Narcan) Related Data Previous Rx's Medication Instructions Recorded mirtazapine 7.5 mg tablet 7.5 mg PO BEDTIME 30 days #30 tabs 12/09/21 naloxone 4 mg/actuation nasal 4 mg intranasal Q3M PRN opioid 12/09/21 spray (Narcan) overdose #2 ea olanzapine 2.5 mg tablet 2.5 mg PO BEDTIME 30 days #30 tabs 12/09/21 trazodone 50 mg tablet 50 mg PO BEDTIME PRN Insomnia 30 12/09/21 days #30 tabs naloxone 4 mg/actuation nasal spray 4 mg intranasal Q3M PRN opioid 12/17/22 overdose #2 ea Allergies Allergy/AdvReac Type Severity Reaction Status Date / Time No Known Allergies Allergy Unverified 04/02/20 17:11 [No Known Allergies*] Review of Systems Review of Systems: As per HPI Yes all other systems are reviewed and are negative Constitutional: Constitutional: Reports body ache(s) Eyes: Eyes: Reports no additional eye complaints ENT: Reports system reviewed and no additional complaints, except as documented Cardiovascular: Cardiovascular: Reports no additional cardiovascular complaints Respiratory: Respiratory: Reports no additional respiratory complaints Gastrointestinal: Gastrointestinal: Reports nausea Comments: increased thirst Genitourinary: Genitourinary: Reports no additional male genitourinary complaints Musculoskeletal: Musculoskeletal: Reports myalgias Neurologic: Reports system reviewed and no additional complaints, except as documented Psychiatric: Psychiatric: Reports no additional psychiatric complaints PMFSH Past Medical History Medical History Hernia Surgical History History of hernia surgery Social History Social History Household Members: Other Household Members Other:: pt homeless and lives at times in senior living and w/friends Housing: Homeless Do you presently have visiting nurse or other home services: No Alcohol intake: never Patient Tobacco Use Status: Current everyday Tobacco user Tobacco use type: Cigarette Smoked in Last 30 Days: Yes Use of substances other than those prescribed or required for medical reasons: Yes Substance Use Type: Crack/Cocaine and Heroin Advance Directives: No service: No Sexual orientation: Straight/Heterosexual Physical Exam ED Vital Signs: Vital Signs - 24 hr 12/17/22 10:14 12/17/22 15:16 12/17/22 16:40 Temperature 99.1 F 98.7 F 98.7 F Pulse Rate 105 H 79 69 Respiratory Rate 18 18 13 Blood Pressure 117/67 114/58 L 99/51 L Pulse Oximetry 96 95 98 Oxygen Delivery Method Room Air Room Air Room Air BMI result Body Mass Index 26.9 Vital signs have been reviewed and appear to be correct. Blood pressure normal. Heart rate slightly elevated. Respiratory rate normal. Temperature normal. Oxygen saturation normal. Const General: cooperative, healthy appearing and no acute distress Orientation/consciousness: oriented to person, oriented to place, oriented to time and patient oriented x3 Limitations: no limitations HENMT Other: Dry mucous membranes Head: Yes normal to inspection, Yes No palpable skull fracture present, Yes normocephalic, Yes atraumatic, No abrasion, No Yates's sign, No contusion and No raccoon eyes Ears: external ears normal and TM's normal bilaterally General nose exam: Normal external nose present and Normal septum present Face and sinus: Yes face symmetric, No abrasion, No ecchymosis and No erythema Mouth: tongue normal, oropharynx normal and mucous membranes dry Teeth and gingiva: dentition normal Throat: Yes posterior oropharynx normal and Yes uvula midline Eyes General: appearance normal, both eyes and all related structures Pupils: Equal, round and reactive pupils present EOM: EOMs intact bilaterally Neck Neck: Yes normal visual inspection and Yes supple Resp Effort & Inspection: normal respiratory effort and able to speak in complete sentences Auscultation: clear to auscultation bilaterally Cardio Rate: regular rate Rhythm: regular rhythm Heart sounds: S1 normal heart sound present and S2 normal heart sound present GI Palpation (GI): Soft to palpation and nontender Auscultation: normoactive bowel sounds General: Yes no CVA tenderness Back/Spine/Pelvis Back: no CVA tenderness Cervical Spine: cervical ROM normal, No Cervical spine tenderness and No step off deformity Thoracic/Lumbar Spine: No thoracic spinal tenderness and No lumbar spinal tenderness Pelvis: no pain with anterior-posterior compression and no pain with lateral compression Skin General skin exam: elasticity normal and turgor normal Neuro General: oriented to person, oriented to place, oriented to time, patient oriented x3, moves all extremities, no focal motor deficits and CN's II-XI intact bilaterally Cranial nerves: Yes Equal, round and reactive pupils present Cognition (Neuro): normal cognition Motor exam (neuro): 5/5 motor strength present throughout Extrem General: Yes normal to inspection, Yes full ROM, Yes capillary refill normal, Yes no pedal edema and Yes no calf tenderness Psych Mental Status: mental status grossly normal Affect: normal affect Thought process: Normal thought process present Course Course Course Narrative: 11:14 Patient remains awake, alert, maintaining airway. Awaiting results of labs and CT. 12:32 CK and BUN/Cr elevated, second L of IVF ordered and patient provided with pitcher of water, PO intake encouraged. No contraindications to fluid administration based on pmhx. Will recheck labs after fluids. 14:38 Patient has received 2L of NS, lungs CTA throughout, will order additional 1L and recheck BMP. 15:31 Patient now complaining of right ankle pain and swelling. Mild swelling and TTP noted to lateral malleoulus, ordered x-ray. 17:01 FINDINGS: There is no evidence of acute fracture or dislocation of the right ankle. Ankle mortise appears intact. There is some soft tissue edema seen about the anterior aspect of the ankle. Visualized joint spaces maintained. Plantar calcaneal spur identified.? XR/XR ankle RT 2V IMPRESSION: No significant bony abnormality of the right ankle identified. Repeat BMP. 17:48 BUN/Cr improved after IV fluids, patient reports improvement in symptoms. Feel patient is stable for discharge home at this time. Encouraged to continue ensuring adequate fluid intake over the next several days. Return precautions discussed at bedside including worsening muscle pain and weakness, and dark urine. Instructed patient to follow up with PCP. Prescribed naloxone. All results discussed with patient and all questions answered, patient agreeable with plan of care. Medications Administered Discontinued Medications Generic Name Dose Route Start Last Admin Trade Name Lorrie PRN Reason Stop Dose Admin Sodium Chloride 1,000 mls @ 999 mls/hr 12/17/22 10:30 12/17/22 12:50 Ns IV 12/17/22 11:30 Infused .Q1H1M [facility]fusion Sodium Chloride 1,000 mls @ 999 mls/hr 12/17/22 12:45 12/17/22 15:09 Ns IV 12/17/22 13:45 Infused .Q1H1M [facility] Sodium Chloride 1,000 mls @ 999 mls/hr 12/17/22 14:45 12/17/22 17:28 Ns IV 12/17/22 15:45 Infused .Q1H1M [facility] Medical Decision Making Medical Decision Making MDM Narrative: Patient is a 67-year-old male with history of OUD presenting to the ED via EMS after being found unresponsive. On exam patient is awake, A+Ox3, normal neurological exam without focal deficits, head normocephalic and atraumatic, LS CTA throughout, ABD SNT, no obvious contusions, abrasions, deformities. Given patient's age and possible fall from standing, will obtain CT head and neck to assess for any ICH, skull fracture, cervical fracture, basic labs including CK to assess for rhabdo with patient's complaint of all over body pain. Will place order for DARIUS evaluation once medically cleared. Please refer to course for remaining clinical decision making. Differential Diagnosis Differential Diagnoses: The differential diagnosis associated with the presentation includes As above Admission/Observation Consideration of admission/observation: Escalation of care including admission/observation considered Lab Data 12/17/22 11:26 12/17/22 12:02 Labs: Lab Results 12/17/22 12/17/22 12/17/22 Range/Units 11:26 12:02 15:15 WBC 11.2 H (4.8-10.8) X10*3/uL RBC 4.52 L (4.60-5.80) X10*6/uL Hgb 14.3 (14.0-18.0) g/dl Hct 42.5 (42.0-52.0) % MCV 94.0 (80.0-98.0) fL MCH 31.6 (27.0-33.0) pg MCHC 33.6 (31.0-36.0) g/dl RDW 13.8 (11.0-16.0) % Plt Count 174 (160-400) X10*3/uL MPV 10.2 (9.4-12.4) fL Immature Gran % (Auto) 0.6 H (0.0-0.4) % Neut % (Auto) 83.1 H (45-73) % Lymph % (Auto) 9.0 L (20-40) % Beckham % (Auto) 6.5 (2-11) % Eos % (Auto) 0.4 (0-4) % Baso % (Auto) 0.4 (0-2) % Lymph # (Auto) 1.0 L (1.2-4.9) X10*3/uL Beckham # (Auto) 0.7 (0.1-1.2) X10*3/uL Eos # (Auto) 0.0 (0.0-0.4) X10*3/uL Baso # (Auto) 0.1 (0.0-0.2) X10*3/uL Abs Immat Gran (auto) 0.07 H (0.00-0.03) X10*3/uL Absolute Neuts (auto) 9.3 H (2.0-8.3) x10*3/uL Absolute Nucleated RBC 0.000 (0.0-0.012) X10*3/uL Nucleated RBC % (auto) 0.0 (0.0-0.2) /100WBC Sodium 138 (135-145) mmol/L Potassium 4.6 (3.3-5.1) mmol/L Chloride 109 H (96-108) mmol/L Carbon Dioxide 20 L (22-29) mmol/L Anion Gap 14 (12-20) BUN 28 H (9-16) mg/dL Creatinine 2.30 H (0.5-1.4) mg/dL Estim Creat Clear Calc 30.1 Estimated GFR 29 Random Glucose 76 (60-115) mg/dL Calcium 8.7 D (8.4-10.2) mg/dL Total Creatine Kinase 1375 H (38-174) U/L Urine Color Yellow Urine Appearance Clear Urine pH 5.5 (5.0-9.0) Ur Specific Witten 1.015 (1.005-1.025) Urine Protein 30 (1+) H (Neg-Trace) mg/dL Urine Glucose (UA) Negative (Negative) mg/dL Urine Ketones Trace (Negative) mg/dL Urine Blood Moderate (2+) H (Negative) Urine Nitrite Negative (Negative) Ur Leukocyte Esterase Negative (Negative) Urine RBC 3-5 H (0-2) /HPF Urine WBC 0-5 (0-5) /HPF Ur Squamous Epith Cells 0-2 (0-2) /HPF Urine Bacteria None Seen (None Seen) Hyaline Casts 3-5 (0-2) /LPF 12/17/22 Range/Units 17:11 WBC (4.8-10.8) X10*3/uL RBC (4.60-5.80) X10*6/uL Hgb (14.0-18.0) g/dl Hct (42.0-52.0) % MCV (80.0-98.0) fL MCH (27.0-33.0) pg MCHC (31.0-36.0) g/dl RDW (11.0-16.0) % Plt Count (160-400) X10*3/uL MPV (9.4-12.4) fL Immature Gran % (Auto) (0.0-0.4) % Neut % (Auto) (45-73) % Lymph % (Auto) (20-40) % Beckham % (Auto) (2-11) % Eos % (Auto) (0-4) % Baso % (Auto) (0-2) % Lymph # (Auto) (1.2-4.9) X10*3/uL Beckham # (Auto) (0.1-1.2) X10*3/uL Eos # (Auto) (0.0-0.4) X10*3/uL Baso # (Auto) (0.0-0.2) X10*3/uL Abs Immat Gran (auto) (0.00-0.03) X10*3/uL Absolute Neuts (auto) (2.0-8.3) x10*3/uL Absolute Nucleated RBC (0.0-0.012) X10*3/uL Nucleated RBC % (auto) (0.0-0.2) /100WBC Sodium 142 (135-145) mmol/L Potassium 5.2 H (3.3-5.1) mmol/L Chloride 112 H (96-108) mmol/L Carbon Dioxide 25 (22-29) mmol/L Anion Gap 10 L (12-20) BUN 25 H (9-16) mg/dL Creatinine 1.84 H (0.5-1.4) mg/dL Estim Creat Clear Calc 37.6 Estimated GFR 37 Random Glucose 94 (60-115) mg/dL Calcium 7.9 L D (8.4-10.2) mg/dL Total Creatine Kinase (38-174) U/L Urine Color Urine Appearance Urine pH (5.0-9.0) Ur Specific Witten (1.005-1.025) Urine Protein (Neg-Trace) mg/dL Urine Glucose (UA) (Negative) mg/dL Urine Ketones (Negative) mg/dL Urine Blood (Negative) Urine Nitrite (Negative) Ur Leukocyte Esterase (Negative) Urine RBC (0-2) /HPF Urine WBC (0-5) /HPF Ur Squamous Epith Cells (0-2) /HPF Urine Bacteria (None Seen) Hyaline Casts (0-2) /LPF Discharge Plan Discharge Clinical Impression: Drug overdose, Opioid use disorder, Elevated CK Patient Disposition: Home, Self-Care Instructions: Naloxone (Into the nose), Adult Overdose (ED), Narcotic Use Disorder (ED) Additional Instructions: Be sure to drink plenty of fluids over the next several days. Please return to the emergency department if you develop worsening muscle pain and weakness, dark urine, nausea and vomiting, chest pain, shortness of breath, fever 100.4F or other concerning symptoms. Follow up with your primary care provider within two days. Prescriptions: New naloxone 4 mg/actuation spray,non-aerosol 4 mg intranasal Q3M PRN (Reason: opioid overdose) Qty: 2 0RF Rx Instructions: spray 1 dose into ONE nostril; alternate nostrils w each dose until help arrives No Action trazodone 50 mg Tablet 50 mg PO BEDTIME PRN (Reason: Insomnia) 30 Days Qty: 30 0RF olanzapine 2.5 mg Tablet 2.5 mg PO BEDTIME 30 Days Qty: 30 0RF mirtazapine 7.5 mg Tablet 7.5 mg PO BEDTIME 30 Days Qty: 30 0RF naloxone [Narcan] 4 mg/actuation spray,non-aerosol 4 mg intranasal Q3M PRN (Reason: opioid overdose) Qty: 2 0RF Rx Instructions: spray 1 dose into ONE nostril; alternate nostrils w each dose until help arrives
[2022-12-17 10:14] VITALS: BP 117/67; BP 134/84; PULSE 105; PULSE 130; RESP 18; TEMP 37.3; O2SAT 96; BMI 26.9
--- NOTE | 2022-12-17 10:21 | MHC.EDTECH ---
BELONGINGS IN [place]ON @ THIS TIME WITH JUAN CARLOS THOMAS
[2022-12-17 11:29] LABS: MANUAL DIFF FLAG NO
[2022-12-17] MEDS: 0.9 % Sodium Chloride 1,000 ML 999 ML IV ×3 (11:32→15:09)
[2022-12-17 11:50] LABS: Basophils Absolute Auto 0.1 X10*3/uL (0.0-0.2); Basophils Percent Auto 0.4 % (0-2); Eosinophils Percent Auto 0.4 % (0-4); Hematocrit 42.5 % (42.0-52.0); Hemoglobin 14.3 g/dl (14.0-18.0); Imm Gran Abs Auto 0.07 X10*3/uL (0.00-0.03); Imm Gran Pct Auto 0.6 % (0.0-0.4); Mean Corpuscular HGB Conc 33.6 g/dl (31.0-36.0); Mean Corpuscular Hemoglobin 31.6 pg (27.0-33.0); Mean Platelet Volume 10.2 fL (9.4-12.4); Monocytes Absolute Auto 0.7 X10*3/uL (0.1-1.2); Monocytes Percent Auto 6.5 % (2-11); Neutrophils Absolute Auto 9.3 x10*3/uL (2.0-8.3); Neutrophils Percent Auto 83.1 % (45-73); Platelet Count 174 X10*3/uL (160-400); Red Blood Count 4.52 X10*6/uL (4.60-5.80); Red Cell Distribution Width 13.8 % (11.0-16.0); White Blood Count 11.2 X10*3/uL (4.8-10.8)
[2022-12-17 12:27] LABS: Anion Gap 14 (12-20); Blood Urea Nitrogen 28 mg/dL (9-16); Calcium 8.7 mg/dL (8.4-10.2); Carbon Dioxide 20 mmol/L (22-29); Chloride 109 mmol/L (96-108); Creatinine Clr Calc Pharmacy 30.1; Estimated Glomerular Filt Rate 29; Glucose Random 76 mg/dL (60-115); Potassium 4.6 mmol/L (3.3-5.1); Sodium 138 mmol/L (135-145)
--- NOTE | 2022-12-17 15:11 | MHC.RECOVRN ---
This magnetic tape typewriter operator met with patient, patient was alert, sitting up in bed. Patient reports [employer], snorting one bag heroin. Patient reports has hx of overdoses, 20+. Patient reports last overdose 5-7 months ago. Patient reports occasionally snorts 1/2 bag to 1 bag every few months and overdoses. Patient reports about 1.5 years ago was on 100mg MTD daily. Patient reports, self directed pascual with assistance of the MTD clinic. Patient reports had a lean coach in the recent past, did not find it helpful. Patient reports several weeks ago, completed detox at [facility]. Pt reports typically has narcan on person, in case of overdose. This magnetic tape typewriter operator and patient reviewed opiate overdose prevention, harm reduction, medications for opiate use, recovery supports. Patient agreeable to review recovery resources and information on Suboxone/Sublocade.
--- NOTE | 2022-12-17 15:11 | PC.NURSE ---
report received from YOBANI Paige pt alert and oriented x4, stating he feels much better than prior. respirations even and unlabored, skin pwd, normal sinus on monitor. Pt ambulating with bathroom with steady gait, providing us with urine sample
[2022-12-17 15:16] VITALS: BP 114/58; PULSE 79; RESP 18; TEMP 37.1; O2SAT 95
[2022-12-17 15:29] LABS: Appearance Urine Clear; Color Urine Yellow; Glucose Urine UA Negative (Negative); Leukocyte Esterase Urine Negative (Negative); Nitrite Urine Negative (Negative); PH 5.5 (5.0-9.0); Specific Gravity - Urine 1.015 (1.005-1.025); UMIC TRIGGER UACC YES; Urine Blood Moderate (2+) (Negative); Urine Ketones Trace mg/dL (Negative); Urine Protein 30 (1+) mg/dL (Neg-Trace)
[2022-12-17 16:37] LABS: Bacteria Urine None Seen (None Seen); Squamous Epithelial Cell Urine 0-2 /HPF (0-2); WBC Urine 0-5 /HPF (0-5)
[2022-12-17 16:40] VITALS: BP 99/51; PULSE 69; RESP 13; TEMP 37.1; O2SAT 98
[2022-12-17 17:31] LABS: Anion Gap 10 (12-20); Blood Urea Nitrogen 25 mg/dL (9-16); Calcium 7.9 mg/dL (8.4-10.2); Carbon Dioxide 25 mmol/L (22-29); Chloride 112 mmol/L (96-108); Creatinine Clr Calc Pharmacy 37.6; Estimated Glomerular Filt Rate 37; Glucose Random 94 mg/dL (60-115); Potassium 5.2 mmol/L (3.3-5.1); Sodium 142 mmol/L (135-145)
== END 2022-12-17 18:05 | disposition home or self-care (01) ==
PROVIDERS: Registered Nurse Emergency; Emergency Provider Emergency Medicine
DX: T40.1X1A Poisoning by heroin, accidental (unintentional), initial encounter (principal); T40.5X1A Poisoning by cocaine, accidental (unintentional), initial encounter; R51.9 Headache, unspecified; M54.2 Cervicalgia; M25.571 Pain in right ankle and joints of right foot; Y92.9 Unspecified place or not applicable; Z79.899 Other long term (current) drug therapy; F17.210 Nicotine dependence, cigarettes, uncomplicated; Z71.6 Tobacco abuse counseling
CPT/HCPCS: 36415; 70450; 72125; 73600; 80048; 81001; 82550; 85025; 96360; 96361; 99285

== ENCOUNTER 2023-08-07 13:06 | Emergency (ER) | payer MEDICARE, MEDICAID, SELFPAY ==
--- NOTE | ~2023-08-07 | XR_ITS ---
EXAMINATION: XR HAND, LEFT CLINICAL INFORMATION: Left index finger injury. COMPARISON: None available. TECHNIQUE: PA, lateral, and oblique views of the left hand. FINDINGS: The bones and soft tissues are normal. No fracture. Alignment is anatomic. Joint spaces are maintained. No erosions or soft tissue calcifications. XR/XR hand LT 2V IMPRESSION: Normal left hand.
[2023-08-07 13:08] VITALS: BP 129/71; PULSE 64; RESP 18; TEMP 36; O2SAT 100; BMI 26.1
--- NOTE | 2023-08-07 13:11 | ED.GENADULT ---
HPI - General Adult General Chief complaint: Wound/Laceration Stated complaint: Finger lac Time Seen by Provider: 08/07/23 15:49 Source: patient Mode of arrival: ambulatory Limitations: no limitations History of Present Illness HPI narrative: Patient is a 67-year-old right hand dominant male presenting to the emergency department with laceration to distal tip of left index finger. Patient reports that he accidentally got his finger caught in an industrial door at work. Reports his Tdap is up-to-date. Reports pain to the area, denies numbness or tingling. Denies any other injuries. complaint: Left finger laceration Onset (ago): hour(s) Location: left and upper extremity Severity: moderate Quality: aching Pain Consistency: constant Relieving factors: rest Exacerbating factors: movement Associated symptoms: denies other symptoms Treatments prior to arrival: none Related Data Previous Rx's Medication Instructions Recorded mirtazapine 7.5 mg tablet 7.5 mg PO BEDTIME 30 days #30 tabs 12/09/21 naloxone 4 mg/actuation nasal 4 mg intranasal Q3M PRN opioid 12/09/21 spray (Narcan) overdose #2 ea olanzapine 2.5 mg tablet 2.5 mg PO BEDTIME 30 days #30 tabs 12/09/21 trazodone 50 mg tablet 50 mg PO BEDTIME PRN Insomnia 30 12/09/21 days #30 tabs naloxone 4 mg/actuation nasal spray 4 mg intranasal Q3M PRN opioid 12/17/22 overdose #2 ea Allergies Allergy/AdvReac Type Severity Reaction Status Date / Time No Known Allergies Allergy Unverified 04/02/20 17:11 [No Known Allergies*] Review of Systems Review of Systems: As per HPI. Yes all other systems are reviewed and are negative Constitutional: Constitutional: Reports as per HPI [facility] Past Medical History Medical History Hernia Surgical History History of hernia surgery Social History Social History Household Members: Other Household Members Other:: pt homeless and lives at times in assisted and w/friends Housing: Homeless Do you presently have visiting nurse or other home services: No Alcohol intake: never Comment: 15 min checks Patient Tobacco Use Status: Current everyday Tobacco user Tobacco use type: Cigarette Substance Use Type: Crack/Cocaine and Heroin Advance Directives: No Advance Directives Information Provided: Yes service: No Sexual orientation: Straight/Heterosexual Physical Exam ED Vital Signs: Vital Signs - 24 hr 08/07/23 13:08 08/07/23 15:48 Temperature 96.8 F 97.3 F Pulse Rate 64 88 Respiratory Rate 18 16 Blood Pressure 129/71 163/88 H Pulse Oximetry 100 97 Oxygen Delivery Method Room Air Room Air BMI result Body Mass Index 26.1 Vital signs have been reviewed and appear to be correct. Blood pressure normal. Heart rate normal. Respiratory rate normal. Temperature normal. Oxygen saturation normal. Const General: cooperative, healthy appearing and no acute distress Orientation/consciousness: oriented to person, oriented to place, oriented to time and patient oriented x3 Limitations: no limitations HENMT Head: Yes normocephalic and Yes atraumatic Ears: external ears normal General nose exam: Normal external nose present Face and sinus: Yes face symmetric Mouth: oropharynx normal and moist mucous membranes Throat: Yes uvula midline Eyes Pupils: Equal, round and reactive pupils present Neck Neck: Yes normal visual inspection and Yes supple Resp Effort & Inspection: normal respiratory effort and able to speak in complete sentences Auscultation: clear to auscultation bilaterally Cardio Rate: regular rate Rhythm: regular rhythm Heart sounds: S1 normal heart sound present and S2 normal heart sound present GI Palpation (GI): Soft to palpation and nontender Auscultation: normoactive bowel sounds General: Yes no CVA tenderness Back/Spine/Pelvis Back: no CVA tenderness Skin General skin exam: elasticity normal and turgor normal Neuro General: oriented to person, oriented to place, oriented to time, patient oriented x3, moves all extremities, no focal motor deficits and CN's II-XI intact bilaterally Cranial nerves: Yes Equal, round and reactive pupils present Cognition (Neuro): normal cognition Extrem General: Yes full ROM, Yes no pedal edema and Yes no calf tenderness Left upper extremity: hand Details: neuromotor exam normal, neurosensory exam normal and laceration 2nd digit palmar aspect distal Details: linear (1cm, no active bleeding) Psych Mental Status: mental status grossly normal Affect: normal affect Thought process: Normal thought process present Course Course Course Narrative: RME performed by Stacie Dumont PA-C. Patient is a 67 year old assigned male at presenting to the emergency department with a left index finger injury. Patient smashed left index finger in a door. Now bleeding. Patient UTD on tetanus. Detailed physical exam and review of systems are deferred to the electric shovel operator. Imaging ordered. Patient placed back in the waiting room pending room availability and results. Procedures Laceration Laceration 1: Site: hand Side (If applicable): left Size (cm): 1.5 Description: linear and flap Depth: simple, single layer Local Anesthetic: lidocaine 1% Amount of anesthesia used (mL): 2 Pre-repair: wound explored, irrigated extensively and deep structures intact Skin layer closed with: nylon Size (cm): 5-0 Number of sutures: 5 Technique: simple, interrupted Medical Decision Making Medical Decision Making MDM Narrative: Patient is a 67-year-old right hand dominant male presenting to the emergency department with laceration to distal tip of left index finger. On exam patient is awake, A+Ox3, VS WNL, afebrile, normal neurological exam without focal deficits, physical exam findings as above. Given reported symptoms and physical exam findings, initial differential includes laceration, contusion, fracture. X-ray notable for no acute fracture. My interpretation is in agreement with the radiologist's interpretation. Laceration repaired as per procedure note. Patient reports he is up-to-date on his tetanus vaccine. Wound care instructions discussed with patient at bedside. Return precautions discussed as well. Instructed patient to follow-up with his primary care provider. Patient verbalized understanding of and agreement with plan. Differential Diagnosis Differential Diagnoses: The differential diagnosis associated with the presentation includes As per MDM. Independent Interpretation I performed an independent interpretation of an: Plain X-Ray Interpretation: No fracture to left index finger Radiology Impression Discussion of test interpretation with radiology: I have reviewed the radiologist's reading. Radiologist Impression: FINDINGS: The bones and soft tissues are normal. No fracture. Alignment is anatomic. Joint spaces are maintained. No erosions or soft tissue calcifications. XR/XR hand LT 2V IMPRESSION: Normal left hand. External Record Review External record reviewed: Inpatient record, Office record and Outpatient record Discharge Plan Discharge Clinical Impression: Laceration of finger of left hand Patient Disposition: Home, Self-Care Instructions: Finger Laceration (ED) Additional Instructions: You have been evaluated in the emergency department today for a laceration to your finger. Your laceration was repaired in the emergency department with sutures. Please keep the area surrounding the laceration clean and dry and keep dressing in place for the next 24 hours. After that please change the dressing and assess the wound daily. Keep the area out of direct sunlight for the next 6 months to help prevent scarring. You should have the sutures removed in 7-10 days. If you develop fever, redness, swelling at the site of your laceration, or thick yellow drainage please come back to the ER for a wound check. Prescriptions: No Action trazodone 50 mg Tablet 50 mg PO BEDTIME PRN (Reason: Insomnia) 30 Days Qty: 30 0RF olanzapine 2.5 mg Tablet 2.5 mg PO BEDTIME 30 Days Qty: 30 0RF mirtazapine 7.5 mg Tablet 7.5 mg PO BEDTIME 30 Days Qty: 30 0RF naloxone [Narcan] 4 mg/actuation spray,non-aerosol 4 mg intranasal Q3M PRN (Reason: opioid overdose) Qty: 2 0RF Rx Instructions: spray 1 dose into ONE nostril; alternate nostrils w each dose until help arrives naloxone 4 mg/actuation spray,non-aerosol 4 mg intranasal Q3M PRN (Reason: opioid overdose) Qty: 2 0RF Rx Instructions: spray 1 dose into ONE nostril; alternate nostrils w each dose until help arrives
[2023-08-07 15:48] VITALS: BP 163/88; PULSE 88; RESP 16; TEMP 36.3; O2SAT 97
[2023-08-07 17:10] VITALS: BP 150/82; PULSE 64; RESP 16; TEMP 36.2; O2SAT 100
[2023-08-07] MEDS: Lidocaine HCl 1 % MPF 5 ML VIAL INFILTRATI (17:14)
== END 2023-08-07 17:14 | disposition home or self-care (01) ==
PROVIDERS: Emergency Provider Emergency Medicine
DX: S61.211A Laceration without foreign body of left index finger without damage to nail, initial encounter (principal); W23.1XXA Caught, crushed, jammed, or pinched between stationary objects, initial encounter; Y93.89 Activity, other specified; Y92.9 Unspecified place or not applicable; Y99.0 Civilian activity done for income or pay
CPT/HCPCS: 12001; 73120; 99284

== ENCOUNTER 2025-03-12 08:45 | Emergency (ER) | payer MEDICARE, MEDICAID, SELFPAY ==
--- OUTSIDE RECORDS SUMMARY | 2023-09-20 05:30 | XMS_ITS ---
Author Organization [facility] Address [address], [place] [id number] Care Team Providers Care Sketch Artist Name Role Phone Ondina Gregg Primary Care Provider REASON FOR VISIT office:chronic care Social History Sex Assigned At : Social History Observation Description Sex Assigned At Male Encounters Encounter Location Date Provider Diagnosis [facility] [address], [place] [id number] 09/20/2023 Ondina Gregg Encounter for screening for COVID-19 Z11.52 Assessments Encounter Date Diagnosis (ICD Code) Assessment Notes Treatment Notes Treatment Clinical Notes Section Notes 09/20/2023 Encounter for screening for COVID-19 (ICD-10 - Z11.52) Covid screening is negative. Discussed in detail with patient how to practice social distancing by avoiding public spaces and crowds now, wearing a mask in public to keep nose and mouth covered, and washing hands frequently especially before eating and after using the bathroom. Return to clinic if you develop any symtpoms of concern to be rescreened or go to the emergency room if you are having concerning symptoms for COVID-19. 09/20/2023 Other Plan Of Treatment Treatment Notes Assessment Notes Encounter for screening for COVID-19 Cov id screening is negative. Discussed in detail with patient how to practice social distancing by avoiding public spaces and crowds now, wearing a mask in public to keep nose and mouth covered, and washing hands frequently especially before eating and after using the bathroom. Return to clinic if you develop any symtpoms of concern to be rescreened or go to the emergency room if you are having concerning symptoms for COVID-19. Progress Notes * Jefferson SOTELO DDOB:[birth year] (69 yo M)Acc No.[id number]:09/20/2023 Progress Notes Patient: Jefferson CORDERO Provider: CHRISTIN Damon :1955 A ge:67 Y S ex:Male Date:09/20/2023 Address:[address] [facility] ( verify a ddress)[id number] Subjective: * Chief Complaints: * 1 . Office:chronic care. * HPI: G eneral: Symptom Screen: - Fever in the last 1 week? Patient denies - New or worsening cough in the last 1 week? Patient denies. - Contact will known COVID exposure in last 5 days? Patient denies -new rash within last 3 weeks? Patient denies RN/MA: - Have you received the COVID-19 vaccine? - Have you received COVID-19 booster? - Have you been tested positive for COVID -19 in the last 7 days? If so where and why?. * ROS: N o acute C/P no acute SOB, No problem with urine, No heartburn or abdominal pain. Endorses being able to climb one fight of stairs without stopping due to SOB, Mood: stable, appetite: good, sleeping well. Denies new skin rashes. * Medical History: Objective: * Vitals: Assessment: * Assessment: 1. E ncounter for screening for COVID-19 - Z11.52 (Primary) Plan: * Treatment: * Images: Billing Information: * Visit Code: * Procedure Codes: Care Plan Details* * Electronic signature of Vishal Gregg on 03/12/2025 at 09:58 AM EDT Sign off status: Pending * Provider: CHRISTIN Damon Date: 0 09/20/2023 Generated for Shania ogden/Akanksha/Demarco on: 0 03/12/2025 09:58 AM EDT
--- OUTSIDE RECORDS SUMMARY | 2024-10-22 10:00 | XMS_ITS ---
Author Organization [facility] Address [address] [place], [place] [phone] Care Team Providers Care Professional Services Manager Name Role Phone Ondina Gregg Primary Care Provider Mayur Davis Unavailable [phone] REASON FOR VISIT Office: [facility]; COVID vax; HEp A 2;Tdap; Shingrix; PCV 20; SDOH; PHQ-9; Coilkorecatl; meds, VIOSIT: tobacco';lung cancer; SA; Hep C status; mood, Symptom screening by [facility] staff pre entrance to clinic Medications Medication SIG (Take, Route, Frequency, Duration) Notes Start Date End Date Status rosuvastatin 5 mg 1 tab(s) orally once a day for 30 days pls deliver to address 09/21/2022 Active busPIRone 15 mg 1 tab(s) orally qd Client not carl re of dose Active Vraylar 3 mg 1 cap(s) orally once a day 05/11/2020 Active OLANZapine 5 mg 1/2 to 1 tab(s) oral ly at night as needed for hyperactivity and insomnia Active Social History Sex Assigned At : Social History Observation Description Sex Assigned At Male Encounters Encounter Location Date Provider Diagnosis [facility] [address] [place], [place] [id number] 10/22/2024 Mayur Davis Sheltered homelessne ss Z59.01 [...] Jefferson SOTELO DDOB:[birth year] (69 yo M)Acc No.[id number]:10/22/2024 Progress Notes Patient: Jefferson CORDERO Provider: Oumar Davis MD :1955 A ge:68 Y S ex:Male Date:10/22/2024 Address:[address] [place] [address] ( verify a ddress)[id number] Pcp:Ondina Gregg Subjective: * Chief Complaints: * 1 . Office: Transfer of care - now at [facility] in [place]. 2. HUDDLE: FLu vax; COVID vax; HEp A 2;Tdap; Shingrix; PCV 20; SDOH; PHQ-9; Coilkorecatl; meds. 3. VIOSIT: tobacco';lung cancer; SA; Hep C status; mood. 4. Symptom screening by [facility] staff pre entrance to clinic. * HPI: [...] had not arrived for 2:00 appt. Calling [phone]. Calling restrictions. CAll cannot go through 6 PM: Same. * ROS: N o acute C/P no acute SOB, No problem with urine, No heartburn or abdominal pain. Endorses being able to climb one fight of stairs without stopping due to SOB, Mood: stable, appetite: good, sleeping well. Denies new skin rashes. * Medical History: * Medications: T aking rosuvastatin 5 mg tablet 1 tab(s) orally once a day , Notes to Pharmacist: pls deliver to address, Taking busPIRone 15 mg tablet 1 tab(s) orally qd , Notes to Pharmacist: Client not sure of dose, Taking Vraylar 3 mg capsule 1 cap(s) orally once a day , Taking OLANZapine 5 mg tablet 1/2 to 1 tab(s) [...] Electronic signature of Andkellie Davis MD on 03/12/2025 at 09:58 AM EDT Sign off status: Pending * Provider: Oumar Davis MD Date: 0 10/22/2024 Generated for Shania ogden/Akanksha/Demarco on: 0 03/12/2025 09:58 AM EDT
[2025-03-12 08:51] VITALS: BP 148/72; PULSE 67; RESP 18; TEMP 36.6; O2SAT 98; BMI 22.1
[2025-03-12 09:51] LABS: MANUAL DIFF FLAG NO
[2025-03-12 09:54] LABS: Hematocrit 44.5 % (42.0-52.0); Hemoglobin 15.1 g/dl (14.0-18.0); Imm Gran Abs Auto 0.01 X10*3/uL (0.00-0.03); Imm Gran Pct Auto 0.2 % (0.0-0.4); Lymphocytes Absolute Auto 1.6 X10*3/uL (1.2-4.9); Mean Corpuscular HGB Conc 33.9 g/dl (31.0-36.0); Mean Corpuscular Hemoglobin 31.4 pg (27.0-33.0); Mean Corpuscular Volume 92.5 fL (80.0-98.0); NRBC Abs Auto 0.000 X10*3/uL (0.0-0.012); NRBC Pct Auto 0.0 /100WBC (0.0-0.2); Platelet Count 191 X10*3/uL (160-400); Red Blood Count 4.81 X10*6/uL (4.60-5.80); White Blood Count 6.0 X10*3/uL (4.8-10.8)
--- OUTSIDE RECORDS SUMMARY | 2025-03-12 09:59 | XMS_ITS | Clinical Summary ---
Author Organization [facility] Address [address] [facility] [address] [place] [phone] Phone Care Team Providers Care Analytics Lead Name Role Phone Pcp, Unknown Primary Care Provider Unavailabl e Allergies No known active allergies Social History Tobacco Use Types Packs/Day Years Used Date Smoking Tobacco: Every Day Cigarettes Smokeless Tobacco: Never Tobacco Cessation:Ready to Q uit: Not Asked; Counseling Given: Not Answered Alcohol Use Standard Drinks/Week Comments Not Currently 0 (1 standard drink = 0.6 oz pur e alcohol) Education Answer Date Recorded Are you interested in more education? Not on shamika e 06/22/2024 Are you concerned about learning? Not on file 06/22/2024 No 06/22/2024 No 06/22/2024 Digital Access Answer Date Recorded No 06/22/2024 No 06/22/2024 Reliable internet access at home? Not on file 06/22/2024 Device with a working camera? Not on file Intimate Partner Violence Answer Date R ecorded Are you denied basic needs s uch as food, clothing, or medical care? No 08/20/2024 In the past 12 months have y ou been in a relationship with a person who hurts, threatens, or tries to control you? No 08/20/2024 Are you denied basic needs s uch as food, clothing, or medical care? No 08/20/2024 In the past 12 months have y ou been in a relationship with a person who hurts, threatens, or tries to control you? No 08/20/2024 Sex and Gender Information Value Date Recorded Sex Assigned at Male 06/22/2024 9:37 AM EST Legal Sex Male 9:54 PM EDT Gender Identity Male 06/22/2024 9:37 AM EST Sexual Orientation Lesbian or Chase 06/22/2024 9: 58 AM EST Last Filed Vital Signs Vital Sign Reading Time Taken Comments Blood Pressure 112/69 08/20/2024 9:10 AM EST Pulse 79 08/20/2024 9:10 AM EST Temperature 36 C (96.8 F) 08/20/2024 9:10 AM EST Respiratory Rate 18 08/20/2024 9:10 AM EST Oxygen Saturation 97% 08/20/2024 9:10 AM EST Inhaled Oxygen Concentration - - Weight 68 kg (150 lb) 08/20/2024 9:10 AM EST Height 172.7 cm (5' 8 ) 08/20/2024 9:10 AM EST Body Mass Index 22.81 08/20/2024 9:10 AM EST Plan of Treatment Health Maintenance Due Date Last Done Comments Adult Td,Tdap Booster 1955 LIPID PANEL 1955 DEPRESSION SCREENING 1967 SMOKING Hx and SMOKELESS TOB ACCO SCREENING 11/04/1968 HEPATITIS C SCREENING 11/04/1973 PNEUMOCOCCAL VACCINES (50+ y ears) (1 of 2 - PCV) 11/04/1974 COLOGUARD 11/04/2000 COLONOSCOPY 11/04/2000 COLORECTAL CANCER SCREENING 11/04/2000 FIT TEST 11/04/2000 FOBT 11/04/2000 SIGMOIDOSCOPY 11/04/2000 VIRTUAL COLONOSCOPY 11/04/2000 ZOSTER VACCINES (1 of 2) 11/04/2005 ABDOMINAL AORTIC ANEURYSM (A AA) SCREENING 11/04/2020 COVID-19 VACCINE (2023-2 5 season) 2024 RSV VACCINE (1 - 1-dose 75+ series) 11/04/2030 HEPATITIS A VACCINES Aged Out No long er eligible based on patient's age to complete this topic HIB VACCINES Aged Out No longer eligi ble based on patient's age to complete this topic MENINGOCOCCAL VACCINES (ACWY) Aged Out No longer eligible based on patient's age to complete this topic MENINGOCOCCAL VACCINES (B) Aged Out N o longer eligible based on patient's age to complete this topic Medical Devices Not on file Insurance [place]IC[place] MED[place] & B [facility] MEDICARE PART [place] Care Teams Analytics Lead Relationship Specialty Start Date End Date Pcp, Unknown PCP - General 06/22/24 Additional Source Comments The information contained in this document represents components of the legal health record. It is not the complete legal health record.[facility]
--- OUTSIDE RECORDS SUMMARY | 2025-03-12 09:59 | XMS_ITS | Patient Health Record ---
Author Organization [facility] Address [address] et [place], [place] [address] Care Team Providers Care Office Associate Name Role Phone Ondina Gregg Primary Care Provider Mayur Davis Unavailable [phone] Allergies No Known Allergies Reason For Referral Reason PT-1 to [facility] 2 visits/month x 12 months Referral Organization [facility] Referring Provider First Name Ondina Referring Provider Last Name Cristino Referring Provider Speciality Nurse Prac titioner Referred Provider PT, -1 Referral Priority Routine Medications Medication SIG (Take, Route, Frequency, Duration) [...] as needed for hyperactivity and insomnia Active Immunizations Vaccine Route Administration Date Status Comme nts Fluvirin IM Intramuscular 07/27/2012 Administered PPD planted ID Intradermal 08/15/2012 Administered Tdap IM Intramuscular 08/15/2012 Administered PPD negative Unknown 08/17/2012 Administered 0 mm indur ation after 48 hrs. Moderna Covid-19 Vaccine Administration - First Dose (Single Dose 100MCG/0.5ML 1ST) Unknown 10/12/2020 Administered Flu-IIV4, p-free Unknown 06/08/2016 Administered PPSV 23 Unknown 11/22/2016 Administered Hepatitis A Unknown 11/22/2016 Administered Social History Tobacco Use: Social History Observation Description Date Details (start date - stop date) Current Smoker NA - NA Sex Assigned At : Social History Observation Description Sex Assigned At Male Tobacco Use Assessment MU Question Answer Notes What is your current smoking status? current smo ker Section Notes: 07/2012 receiving unemployme nt from [employer]. On second extension 07/2012 receiving unemployme nt from [employer]. On 07/2012 receiving unemployme nt from [employer]. On 07/2012 receiving unemployme nt from [employer]. On 07/2012 receiving unemployme nt from [employer] On 07/2012 receiving unemployme nt from [employer] On 07/2012 receiving unemployme nt from [employer] On 07/2012 receiving unemployme nt from [employer] On 07/2012 receiving unemployme nt from [employer] On 07/2012 receiving unemployme nt from [employer] On 07/2012 receiving unemployme nt from [employer] On 07/2012 receiving unemployme nt from [employer] On 07/2012 receiving unemployme nt from [employer]. On 07/2012 receiving unemployme nt from [employer] On 07/2012 receiving unemployme nt from [employer] On 07/2012 receiving unemployme nt from [employer] On 07/2012 receiving unemployme nt from [employer] On 07/2012 receiving unemployme nt from [employer]. On 07/2012 receiving unemployme nt from [employer]. On 07/2012 receiving unemployme nt from [employer]. On 07/2012 receiving unemployme nt from [employer]. On 07/2012 receiving unemployme nt from [employer]. On 07/2012 receiving unemployme nt from [employer]. On 07/2012 receiving unemployme nt from [employer]. On 07/2012 receiving unemployme nt from [facility]. On second extension 07/2012 receiving unemployme nt from [facility]. On second extension 07/2012 receiving unemployme nt from [facility]. On second extension 07/2012 receiving unemployme nt from [facility]. On second extension Problems Problem Type SNOMED Code ICD Code Onset Dates Problem Status W/U Status Risk Notes Problem Chronic hepatitis C (223685179) Chronic viral hepatitis C (B18.2) Active confirmed Problem Mixed hyperlipidemia (286519004) Mixed hyperlipidemia (E78.2) Active confirmed Problem Nondependent opioid abuse (620670672) Opioid use, unspecified, uncomplicated (F11.90) Active confirmed Problem Tobacco user (513530813) Nicotine dependence, cigarettes, uncomplicated (F17.210) Active confirmed Problem Bipolar affective disorder, currently manic, moderate (635154436) Bipolar disorder, current episode manic without psychotic features, moderate (F31.12) Active confirmed Problem Moderate recurrent major depression (90033454) Major depressive disorder, recurrent, moderate (F33.1) Active confirmed Problem Affective psychosis (657867249) Unspecified mood [affective] disorder (F39) Active confirmed Problem Anxiety disorder (387476874) Anxiety disorder, unspecified (F41.9) Active confirmed Problem Complete edentulism (419193691) Complete loss of teeth, unspecified cause, unspecified class (K08.109) Active confirmed Problem Chronic kidney disease stage 3A (disorder) (626758801) Chronic kidney disease, stage 3a (N18.31) Active confirmed Problem Body mass index 25-29 - overweight (574460153) Body mass index [BMI] 26.0-26.9, adult (Z68.26) Active confirmed Problem Sheltered homelessness (690691360936765) Sheltered homelessness (Z59.01) Active confirmed Problem Tension-type headache (524142674) Tension-type headache, unspecified, not intractable (G44.209) Inactive confirmed Problem Abnormal results of kidney function studies (895963734) Abnormal results of kidney function studies (R94.4) Inactive confirmed Encounters Encounter Location Date Provider Diagnosis [facility] [address] [place], [place] [id number] 10/22/2024 Ondina Gregg Assessments Encounter Date Diagnosis (ICD Code) Assessment Notes Treatment Notes Treatment Clinical Notes Section Notes 10/22/2024 Other Plan Of Treatment Pending Test Test Name Order Date SARS CORONAVIRUS W/CoV 2 RNA,QL REAL SHELIA E RT PCR 11/13/2019 SARS-CoV-2 RNA, QUAL RT-PCR 11/14/2019 Insurance Providers Payer Name Payer Address Payer Phone Subscriber Number Group Number Insured Name Patient Relationship to Insured Coverage Start Date Coverage End Date [place] [employer] [address] [place] [address] [id number] Jefferson Sotelo Self - patient is the insured 5 [place] Medicaid Standard [address] [place] [address] [id number] Jefferson Sotelo Self - patient is the insured 0 Medical (General) History Medical History History ICD Code heroin abuse smoker / ppd alcohol misuse MH issues OPIOID ABUSE-UNSPEC Tobacco use disorder BMI BETWEEN 19-24,ADULT Hep C pos Shingles December 2018- left inner arm COVID 19 08/02/21 Surgical History Surgery Date(Month/Year) Colonoscopy double hernia surgery 2008 Hospitalization History Reason Date(Month/Year) [facility] 03/2020 [facility] - lost his teeth-throught out fa lse teeth 03/04 [facility] (detox 20 times) 11/29 [facility] then [facility]-also [facility] Det[facility] 06/2012 several detoxes
[2025-03-12 10:09] LABS: Alanine Aminotransferase 18 U/L (0-40); Albumin Level 4.5 g/dL (3.5-5.0); Alkaline Phosphatase 56 U/L (39-117); Anion Gap 12 (12-20); Aspartate Amino Transferase 30 U/L (5-37); Blood Urea Nitrogen 9 mg/dL (9-16); Calcium 9.3 mg/dL (8.4-10.2); Carbon Dioxide 27 mmol/L (22-29); Chloride 108 mmol/L (96-108); Creatinine Clr Calc Pharmacy 56.9; Estimated Glomerular Filt Rate > 60; Potassium 4.4 mmol/L (3.3-5.1); Sodium 143 mmol/L (135-145); Total Protein 7.4 g/dL (6.5-8.0)
--- NOTE | 2025-03-12 11:03 | PC.NURSE ---
Pt comes to ED via waiting area for detox purposes. Pt reports he has a history of being sober but has relapsed. He reports drinking 1 quart of hard liquor and 10-15 nips daily. He has 5 nips 20 minute prior to his arrival to the ED. He also reports use of cocaine and marijuana. He reports he woke up this AM missing his dentures, he cannot recall what happened to them and feels he needs to get sober. He complains of feeling nauseous this AM and a Hx of seizures in the past. A&Ox3 VSS Skin is warm and dry Breaths and speech are even and unlabored. 20 placed to [facility] Blood labs sent for processing. Pt is resting quietly at this time. Seizure pads placed to bed rails. Awaiting ED provider.
--- NOTE | 2025-03-12 11:04 | ED_ITS ---
HPI - Alcohol General Chief Complaint: ETOH/Substance Use Stated Complaint: Seeking Detox Time Seen by Provider: 03/12/25 10:59 Source: patient and old records reviewed Mode of arrival: ambulatory Limitations: no limitations History of Present Illness ED Provider: SERGO DE LA CRUZ narrative: 69 yo male with PMH of cocaine abuse, ETOH abuse, mood disorder, who admits to doing okay for a year but started using cocaine again and drinking 15 nips a day. He has no SI/HI. No falls. He states last night he drank and then this AM couldn't find his dentures and that was his tipping point to get help. He c/o not feeling well with nausea. He states a while back he had a seizure but he is not on medications - I asked if it was related to withdrawal and it wasn't clear. He states he stayed overnight in ED and then went home. He denies any other issues other than feeling overall poor with nausea. He admits to drinking last night. MD complaint: alcohol dependence and desires rehab Last drink: Hours (ago) Chronic alcohol use: Yes Previous visits for alcohol intoxication: Yes Recent trauma: No Associated symptoms: nausea Treatments prior to arrival: none Related Data Home Medications ?Medication ?Instructions ?Recorded ?Confirmed No Known Home Meds 03/12/25 03/12/25 Allergies Allergy/AdvReac Type Severity Reaction Status Date / Time No Known Allergies (No Known Allergy Verified 03/12/25 08:55 Allergies*) Review of Systems 2 Review of Systems: Constitutional : No Fever, No Chills, No Fatigue ENT/Mouth : No sore throat, No Rhinorrhea Eyes: No Eye Pain, No Swelling, No Redness Cardiovascular : No Chest Pain, No SOB, No Dyspnea on Exertion Respiratory : No Cough, No Sputum Gastrointestinal : pos Nausea, No Vomiting, No Diarrhea, No abdominal Pain Genitourinary : No Dysuria, No Urinary Frequency, No Hematuria, Musculoskeletal : No joint pain, No Myalgias, No Joint Swelling Skin : No Skin Lesions, No rash Neuro : No Weakness, No Numbness, No Dizziness, positive Headache Psych : pos Anxiety/Panic, No Depression All other systems reviewed and are negative PMFSH Past Medical History Attestation statement: The following information was validated with the patient. Source: old records reviewed Medical History Hernia Surgical History History of hernia surgery Social History Social History Household Members: Other Household Members Other:: pt homeless and lives at times in usp and w/friends Housing: Homeless Do you presently have visiting nurse or other home services: No Alcohol intake: current Alcohol intake frequency: 3 or more drinks per day Alcohol type: hard liquor Comment: 15 min checks Patient Tobacco Use Status: Current everyday Tobacco user Tobacco use type: Cigarette Smoked in Last 30 Days: Yes Use of substances other than those prescribed or required for medical reasons: Yes Substance Use Type: Crack/Cocaine and Marijuana Substance Use Frequency: Daily Any prior treatment program specific to substance use: Yes Advance Directives: No Advance Directives Information Provided: Yes Do you have a plan to hurt others: No Plan service: No Sexual orientation: Straight/Heterosexual Physical Exam ED Vital Signs: Vital Signs - 24 hr 03/12/25 20:52 Temperature 98.6 F Pulse Rate 87 Respiratory Rate 16 Blood Pressure 109/88 Pulse Oximetry 99 Oxygen Delivery Method Room Air BMI result Body Mass Index 22.1 Appearance: Alert. Oriented X3. No acute distress. Eyes: Pupils equal, round and reactive to light. ENT: Pharynx normal. no tongue injury no bleeding, atraumatic scalp, no tongue fasciculations Neck: Normal inspection. Neck supple. CVS: Normal heart rate and rhythm. Pulses normal. Respiratory: No respiratory distress. Breath sounds normal. Abdomen: Soft and nontender. Skin: Skin warm and dry. Normal skin color. Normal skin turgor. Extremities: No lower extremity edema. No calf ttp Neuro: Oriented X 3. No motor deficit. No sensory deficit. CN2-12 intact no tremors Course Course Course Narrative: Time: 1800 Date: 03/12/25 Provider: Aissatou Rogers DO Physician observation ended at 1800 Patient has been cleared for discharge by the CARE team. Will follow up as an outpatient. /Patient to be admitted as inpatient to psychiatry./Patient to be placed at a rehab facility. Medical Decision Making Medical Decision Making MDM Narrative: 69 yo male with PMH of cocaine abuse, ETOH abuse, mood disorder, no signs of active withdrawal, no trauma, no medical complaints other than mild nausea at this time will obtain screening labs, start CIWA and PRN ativan - refer to recovery coaches Differential Diagnosis Differential Diagnoses: The differential diagnosis associated with the presentation includes ETOH abuse, cocaine abuse Admission/Observation Consideration of admission/observation: Escalation of care including admission/observation considered physician observation started at 1155am pending recovery eval Consult Healthcare Provider Management of the patient was discussed with: Behavioral Health Provider pending transfer to [facility] Lab Data [facility] Lab Attestation statement: I reviewed the patient's lab results. 03/12/25 09:45 03/12/25 09:45 Labs: Lab Results 03/12/25 03/12/25 Range/Units 09:45 12:21 WBC 6.0 (4.8-10.8) X10*3/uL RBC 4.81 (4.60-5.80) X10*6/uL Hgb 15.1 (14.0-18.0) g/dl Hct 44.5 (42.0-52.0) % MCV 92.5 (80.0-98.0) fL MCH 31.4 (27.0-33.0) pg MCHC 33.9 (31.0-36.0) g/dl RDW 14.1 (11.0-16.0) % Plt Count 191 (160-400) X10*3/uL MPV 10.0 (9.4-12.4) fL Immature Gran % (Auto) 0.2 (0.0-0.4) % Neut % (Auto) 63.0 (45-73) % Lymph % (Auto) 27.0 (20-40) % [place] % (Auto) 7.3 (2-11) % Eos % (Auto) 1.7 (0-4) % Baso % (Auto) 0.8 (0-2) % Lymph # (Auto) 1.6 (1.2-4.9) X10*3/uL [place] # (Auto) 0.4 (0.1-1.2) X10*3/uL Eos # (Auto) 0.1 (0.0-0.4) X10*3/uL Baso # (Auto) 0.1 (0.0-0.2) X10*3/uL Abs Immat Gran (auto) 0.01 (0.00-0.03) X10*3/uL Absolute Neuts (auto) 3.8 (2.0-8.3) x10*3/uL Absolute Nucleated RBC 0.000 (0.0-0.012) X10*3/uL Nucleated RBC % (auto) 0.0 (0.0-0.2) /100WBC Sodium 143 (135-145) mmol/L Potassium 4.4 (3.3-5.1) mmol/L Chloride 108 (96-108) mmol/L Carbon Dioxide 27 (22-29) mmol/L Anion Gap 12 (12-20) BUN 9 (9-16) mg/dL Creatinine 1.14 (0.5-1.4) mg/dL Estim Creat Clear Calc 56.9 Estimated GFR > 60 Random Glucose 82 (60-115) mg/dL Calcium 9.3 D (8.4-10.2) mg/dL Total Bilirubin 0.5 (0.0-1.0) mg/dL AST 30 (5-37) U/L ALT 18 (0-40) U/L Alkaline Phosphatase 56 (39-117) U/L Total Protein 7.4 (6.5-8.0) g/dL Albumin 4.5 (3.5-5.0) g/dL Urine Color DK YELLOW Urine Appearance Cloudy Urine pH 6.0 (5.0-9.0) Ur Specific [place]ord 1.025 (1.005-1.025) Urine Protein Trace (Neg-Trace) mg/dL Urine Glucose (UA) Negative (Negative) mg/dL Urine Ketones Negative (Negative) mg/dL Urine Blood Negative (Negative) Urine Nitrite Negative (Negative) Ur Leukocyte Esterase Negative (Negative) Urine Opiates Screen Not Detected (Not Detect) Ur Buprenorphine Scrn Not Detected (Not Detect) ng/mL Ur Oxycodone Screen Not Detected (Not Detect) ng/mL Urine Methadone Screen Not Detected (Not Detect) ng/mL Urine Fentanyl Screen Not Detected (Not Detect) Ur Barbiturates Screen Not Detected (Not Detect) Ur Phencyclidine Scrn Not Detected (Not Detect) Ur Amphetamines Screen Not Detected (Not Detect) U Benzodiazepines Scrn Not Detected (Not Detect) Urine Cocaine Screen POSITIVE H (Not Detect) U Marijuana (THC) Screen POSITIVE H (Not Detect) Ethyl Alcohol 46 mg/dL External Record Review External record reviewed: Outpatient record Social Determinants Patient?s care significantly limited by Social Determinants of Health including: Problems related to primary support group Medications Administered Discontinued Medications Generic Name Dose Route Start Last Admin Trade Name Lorrie PRN Reason Stop Dose Admin Lorazepam 2 mg 03/12/25 11:05 03/12/25 11:23 Lorazepam 1 Mg Tablet PO 2 mg Q3H PRN Administration Alcohol Withdrawal Discharge Plan Discharge Clinical Impression: Alcohol use disorder, Cocaine abuse Patient Disposition: Xfer Other Transfer Details: [facility] Instructions: Cocaine Use Disorder (ED), Alcohol Use Disorder (ED) Additional Instructions: Alcohol use disorder You were seen in the Emergency Department today for treatment of alcohol use disorder.? You may have been given medications to help with your withdrawal symptoms.? Please do not drink alcohol with them. This is very dangerous and can cause respiratory depression or other adverse reactions depending on the medication. If you would like to cut down or stop your alcohol use please consider calling our outpatient Addiction Treatment office:? [facility] (M-F 9a-5p) [address] [place] [address] You have also been given a list of treatment providers in the area that can assist as well.? If you experience seizures, vomiting blood, black stools, falls, severe headache, chest pain, fevers, trouble breathing, hallucinations or any other concerns you need to call 911 or seek immediate care. Please stay hydrated. Prescriptions: No Action No Known Home Meds Interventions: ED Discharge Assessment Last Done: 03/12/25 20:52 Discharge Date/Time: 03/12/25 20:53 Print Language: Greenlandic
[2025-03-12 12:44] LABS: Cannabinoid Screen Urine POSITIVE (Not Detect)
--- NOTE | 2025-03-12 15:24 | MHC.CARE ---
Pt accepted to [facility] detox for 9PM tonight. CARE Team will provide lyft.
[2025-03-12 20:52] VITALS: BP 109/88; PULSE 87; RESP 16; TEMP 37; O2SAT 99
[2025-03-12 20:55] LABS: Appearance Urine Cloudy; Glucose Urine UA Negative (Negative); PH 6.0 (5.0-9.0); Specific Gravity - Urine 1.025 (1.005-1.025)
== END 2025-03-12 20:53 | disposition other institution (70) ==
PROVIDERS: Emergency Provider Emergency Medicine
DX: F14.10 Cocaine abuse, uncomplicated (principal); F10.90 Alcohol use, unspecified, uncomplicated; Y90.2 Blood alcohol level of 40-59 mg/100 ml; R11.0 Nausea
CPT/HCPCS: 36415; 80053; 80307; 81003; 85025; 99284; S9485

== ENCOUNTER 2025-03-30 14:12 | Emergency (ER) | payer MEDICARE, MEDICAID, SELFPAY ==
--- OUTSIDE RECORDS SUMMARY | 2024-10-22 10:00 | XMS_ITS ---
Author Organization [facility] Address [address] [place] [address] Care Team Providers Care Quality Assurance Qa Lab Technician Name Role Phone Ondina Gregg Primary Care Provider [phone] Mayur Davis Unavailable [phone] REASON FOR VISIT Office: [facility] care - [facility]: FLu vax; COVID vax; HEp A 2;Tdap; Shingrix; PCV 20; SDOH; PHQ-9; Coilkorecatl; meds, VIOSIT: tobacco';lung cancer; SA; Hep C status; mood, Symptom screening by [facility] staff pre entrance to clinic Medications Medication SIG (Take, Route, Frequency, Duration) Notes Start Date End Date Status ROSUVASTATIN 5 mg 1 tab(s) orally once a day for 30 days pls deliver to address 09/21/2022 Active BUSPIRONE 15 mg 1 tab(s) orally qd Client not carl re of dose Active VRAYLAR 3 mg 1 cap(s) orally once a day 05/11/2020 Active OLANZAPINE 5 mg 1/2 to 1 tab(s) oral ly at night as needed for hyperactivity and insomnia Active Social History Sex Assigned At : Social History Observation Description Sex Assigned At Male Encounters Encounter Location Date Provider Diagnosis [facility] [address] [place], [place] [id number] 10/22/2024 Mayur Davis Sheltered homelessne ss Z59.01 ; Chronic viral hepatitis C B18.2 ; Mixed hyperlipidemia E78.2 ; Bipolar disorder, current episode manic without psychotic features, moderate F31.12 ; Chronic kidney disease, stage 3a N18.31 and Encounter for screening for COVID-19 Z11.52 Assessments Encounter Date Diagnosis (ICD Code) Assessment Notes Treatment Notes Treatment Clinical Notes Section Notes 10/22/2024 Sheltered homelessness (ICD-10 - Z59.01) 10/22/2024 Chronic viral hepatitis C (ICD-10 - B18.2) 10/22/2024 Mixed hyperlipidemia (ICD-10 - E78.2) 10/22/2024 Bipolar disorder, current episode manic without psychotic features, moderate (ICD-10 - F31.12) 10/22/2024 Chronic kidney disease, stage 3a (ICD-10 - N18.31) 10/22/2024 Encounter for screening for COVID-19 (ICD-10 - [...] you are having concerning symptoms for COVID-19. 10/22/2024 Other Plan Of Treatment Treatment Notes Assessment [...] you are having concerning symptoms for COVID-19. Pending Test Test Name Order Date HIV 1/2 ANTIGEN/ANTIBODY,FOURTH GENERATI ON W/RFL 10/22/2024 LIPID PANEL WITH REFLEX TO DIRECT LDL COMPREHENSIVE METABOLIC PANEL-[facility] 02/2025 PHOSPHATE ( PHOSPHORUS) - [facility] 2024 CBC (H/H, RBC, INDICES, WBC, PLT) 2024 FTA-ABS 10/22/2024 VITAMIN D,25-OH,TOTAL,IA 10/22/2024 PTH, INTACT (WITHOUT CALCIUM) 10/22/2024 HEPATITIS C VIRAL RNA, QN REAL TIME PCR W/REFLS 10/22/2024 Progress Notes * Jefferson SOTELO DDOB:[birth year] (69 yo M)Acc No.[id number]:10/22/2024 Progress Notes Patient: Jefferson CORDERO Provider: Oumar Davis MD :1955 A ge:68 Y S ex:Male Date:10/22/2024 Address:[address] [place] [address] ( verify a ddress)[id number] Pcp:Ondina Gregg Subjective: * Chief Complaints: * 1 . Office: Transfer of care - now at [facility] in [place]. 2. HUDDLE: FLu vax; COVID vax; HEp A 2;Tdap; Shingrix; PCV 20; SDOH; PHQ-9; Coilkorecatl; meds. 3. VIOSIT: tobacco';lung cancer; SA; Hep C status; mood. 4. Symptom screening by [facility] staff pre entrance to clinic. * HPI: G eneral: Symptom Screen: - Fever in the last 1 week? Patient denies - New or worsening cough in the last 1 week? Patient denies. - Contact will known COVID exposure in last 5 days? Patient denies -new rash within last 3 weeks? Patient denies - Have you received the COVID-19 vaccine? - Have you received COVID-19 booster? - Have you been tested positive for COVID -19 in the last 7 days? If so where and why? RN/MA: AB: HUDDLE: FLu vax; COVID vax; HEp A 2;Tdap; Shingrix; PCV 20; SDOH; PHQ-9; Coilkorecatl; meds, VIOSIT: tobacco';lung cancer; SA; Hep C status; mood, As of 4:25 had not arrived for 2:00 appt. Calling [phone]. Calling restrictions. CAll cannot go through 6 PM: Same. * ROS: N o acute C/P no acute SOB, No problem with urine, No heartburn or abdominal pain. Endorses being able to climb one fight of stairs without stopping due to SOB, Mood: stable, appetite: good, sleeping well. Denies new skin rashes. * Medical History: * Medications: T aking ROSUVASTATIN 5 mg tablet 1 tab(s) orally once a day , Notes to Pharmacist: pls deliver to address, Taking BUSPIRONE 15 mg tablet 1 tab(s) orally qd , Notes to Pharmacist: Client not sure of dose, Taking VRAYLAR 3 mg capsule 1 cap(s) orally once a day , Taking OLANZAPINE 5 mg tablet 1/2 to 1 tab(s) orally at night as needed for hyperactivity and insomnia Objective: * Vitals: Assessment: * Assessment: 1. S heltered homelessness - Z59.01 (Primary) 2 . C hronic viral hepatitis C - B18.2 3 . M ixed hyperlipidemia - E78.2 4 . B ipolar disorder, current episode manic without psychotic features, moderate - F31.12 5 . C hronic kidney disease, stage 3a - N18.31 6 . E ncounter for screening for COVID-19 - Z11.52 Plan: * Treatment: 2. M ixed hyperlipidemia L AB: LIPID PANEL WITH REFLEX TO DIRECT LDL 3. C hronic kidney disease, stage 3a L AB: PHOSPHATE ( PH[facility]PHORUS) - [facility] L AB: VITAMIN D,25-OH,TOTAL,IA L AB: PTH, INTACT (WITHOUT CALCIUM) 4. E ncounter for screening for COVID-19 Notes:Covid screening is negative. Discussed in detail with [...] you are having concerning symptoms for COVID-19. * Images: Billing Information: * Visit Code: * Procedure Codes: Care Plan Details* * Electronic signature of Andkellie Davis MD on 03/30/2025 at 03:18 PM EDT Sign off status: Pending * Provider: Oumar Davis MD Date: 10/22/2024 Generated for Shania ogden/Akanksha/Demarco on: 0 03/30/2025 03:18 PM EDT
--- OUTSIDE RECORDS SUMMARY | 2025-03-29 17:00 | XMS_ITS ---
Author Organization [facility] Address [address] [place] [phone] Care Team Providers Care Integrity Manager Name Role Phone Odnina Gregg Primary Care Provider Migration, Provider Unavailable Unavailable REASON FOR VISIT Multum To Medispan Conversion Encounter Medications Medication SIG (Take, Route, Frequency, Duration) Notes Start Date End Date Status Rosuvastatin Calcium 5 MG 1 tab(s) orally once a day for 30 days pls deliver to address 09/21/2022 Active busPIRone HCl 15 MG 1 tab(s) orally qd Client no t sure of dose Active Vraylar 3 MG 1 cap(s) orally once a day 05/11/2020 Active OLANZapine 5 MG 1/2 to 1 tab(s) oral ly at night as needed for hyperactivity and insomnia Active Social History Sex Assigned At : Social History Observation Description Sex Assigned At Male Encounters Encounter Location Date Provider Diagnosis [address] [phone] 03/29/2025 Provider Migration Plan Of Treatment No Information Progress Notes * Jefferson SOTELO DDOB:[birth year] (69 yo M)Acc No.[id number]:03/29/2025 Patient: Radha DARRINCHINMAYJefferson Provider: :1955 A ge:69 Y S ex:Male Date:03/29/2025 Address:[address] ( verify a ddress)[id number] Pcp:Ondina Gregg Subjective: * Chief Complaints: * 1 . Multum To Medispan Conversion Encounter. * Medical History: * Medications: T aking Rosuvastatin Calcium 5 MG Tablet 1 tab(s) orally once a day , Notes to Pharmacist: pls deliver to address, Taking busPIRone HCl 15 MG Tablet 1 tab(s) orally qd , Notes to Pharmacist: Client not sure of dose, Taking Vraylar 3 MG Capsule 1 cap(s) orally once a day , Taking OLANZapine 5 MG Tablet 1/2 to 1 tab(s) orally at night as needed for hyperactivity and insomnia Objective: * Vitals: Assessment: Plan: * Treatment: * Images: Billing Information: * Visit Code: * Procedure Codes: * Electronic signature of Prov ider Migration on 03/30/2025 at 03:18 PM EDT Sign off status: Pending * Provider: Date: 03/29/2025 Generated for Shania ogden/Akanksha/Demarco on: 03/30/2025 03:18 PM EDT
--- NOTE | ~2025-03-30 | XR_ITS ---
CLINICAL HISTORY: cp 1 view chest x-ray Comparison: CR/SR - XR CHEST 2 VIEWS - 04/15/22 22:07 EDT Findings: The lungs are clear. Normal size heart. Mild calcified atherosclerotic disease of the aortic arch. No acute fracture. IMPRESSION: 1. No acute cardiopulmonary findings. 2. Mild calcified atherosclerotic disease of the aortic arch. This document has been electronically signed by: Kenrick Carrillo MD on 03/30/2025 16:52:42
[2025-03-30 14:21] VITALS: BP 117/68; PULSE 90; O2SAT 95
--- NOTE | 2025-03-30 14:26 | ECG_ITS ---
Test Reason : cp Blood Pressure : */* mmHG Vent. Rate : 86 BPM Atrial Rate : 86 BPM P-R Int : 164 ms QRS Dur : 72 ms QT Int : 374 ms P-R-T Axes : 66 36 63 degrees QTcB Int : 447 ms Normal sinus rhythm Normal ECG No previous ECGs available Referred By: Generic ED Physician Electronically Signed By: ADRIENNE MARQUEZ
[2025-03-30 14:30] VITALS: BP 108/62; PULSE 82; RESP 18; TEMP 36.9; O2SAT 96; BMI 24.6
[2025-03-30 14:59] LABS: MANUAL DIFF FLAG NO
[2025-03-30 15:00] LABS: Hematocrit 40.9 % (42.0-52.0); Hemoglobin 14.2 g/dl (14.0-18.0); Imm Gran Abs Auto 0.03 X10*3/uL (0.00-0.03); Imm Gran Pct Auto 0.3 % (0.0-0.4); Lymphocytes Absolute Auto 2.0 X10*3/uL (1.2-4.9); Mean Corpuscular HGB Conc 34.7 g/dl (31.0-36.0); Mean Corpuscular Hemoglobin 31.8 pg (27.0-33.0); Mean Corpuscular Volume 91.7 fL (80.0-98.0); NRBC Abs Auto 0.000 X10*3/uL (0.0-0.012); NRBC Pct Auto 0.0 /100WBC (0.0-0.2); Platelet Count 168 X10*3/uL (160-400); Red Blood Count 4.46 X10*6/uL (4.60-5.80); White Blood Count 8.9 X10*3/uL (4.8-10.8)
[2025-03-30 15:15] LABS: Alanine Aminotransferase 27 U/L (0-40); Albumin Level 4.4 g/dL (3.5-5.0); Alkaline Phosphatase 61 U/L (39-117); Anion Gap 17 (12-20); Aspartate Amino Transferase 36 U/L (5-37); Blood Urea Nitrogen 14 mg/dL (9-16); Calcium 9.2 mg/dL (8.4-10.2); Carbon Dioxide 23 mmol/L (22-29); Chloride 106 mmol/L (96-108); Creatinine Clr Calc Pharmacy 61.8; Estimated Glomerular Filt Rate > 60; Potassium 4.1 mmol/L (3.3-5.1); Sodium 142 mmol/L (135-145); Total Protein 6.9 g/dL (6.5-8.0)
--- OUTSIDE RECORDS SUMMARY | 2025-03-30 15:18 | XMS_ITS | Clinical Summary ---
Author Organization [facility] Address [address] [place] [address] Phone Care Team Providers Care [employer]der [employer] Name Role Phone Pcp, Unknown Primary Care [...] ABDOMINAL AORTIC ANEURYSM (A AA) SCREENING 11/04/2020 INFLUENZA VACCINE (#1) 2025 COVID-19 VACCINE ( - 2023-2 5 season) 2025 RSV VACCINE (1 - 1-dose 75+ series) [...] [place] Care Teams [employer] Relationship Specialty Start Date End Date Pcp, Unknown PCP - General 06/22/24 Additional Source Comments The information contained in this document represents components of the legal health record. It is not the complete legal health record.[facility]
--- OUTSIDE RECORDS SUMMARY | 2025-03-30 15:18 | XMS_ITS | Patient Health Record ---
Author Organization [facility] Address [address] [address] Care Team Providers Care Family Consumer Science Teacher Name Role Phone Ondina Gregg Primary Care Provider [phone] Mayur Davis Unavailable [phone] Migration, Provider Unavailable Unavailable Allergies No Known Allergies Reason For Referral Reason PT-[address] [facility] 2 visits/month x 12 months Referral Organization [facility] Referring Provider First Name Ondina Referring Provider [...] Section Notes: 07/2012 receiving unemployme nt from [employer]. On second extension 07/2012 receiving unemployme nt from [employer]. On 07/2012 receiving unemployme nt from [employer]. On 07/2012 receiving unemployme nt from [employer]. On 07/2012 receiving unemployme nt from [employer] On 07/2012 receiving unemployme nt from [employer]. On 07/2012 receiving unemployme nt from [employer]. On 07/2012 receiving unemployme nt from [employer]. On 07/2012 receiving unemployme nt from [employer]. On 07/2012 receiving unemployme nt from [employer]. On 07/2012 receiving unemployme nt from [employer]. On 07/2012 receiving unemployme nt from [employer]. On 07/2012 receiving unemployme nt from [employer]. On 07/2012 receiving unemployme nt from [employer]. On 07/2012 receiving unemployme nt from [employer]. On 07/2012 receiving unemployme nt from [employer]. On 07/2012 receiving unemployme nt from [employer]. On 07/2012 receiving unemployme nt from [employer]. On 07/2012 receiving unemployme nt from [employer]. On 07/2012 receiving unemployme nt from [employer]. On 07/2012 receiving unemployme nt from [employer]. On 07/2012 receiving unemployme nt from [employer]. On 07/2012 receiving unemployme nt from [employer]. On 07/2012 receiving unemployme nt from [employer]. On extension 07/2012 receiving unemployme nt from [facility]. On second extension 07/2012 receiving unemployme nt from [facility]. On second extension 07/2012 receiving unemployme nt from [facility]. On second extension 07/2012 receiving unemployme nt from [facility]. On second extension Problems Problem Type SNOMED Code ICD Code Onset Dates Problem Status W/U Status Risk Notes Problem Chronic hepatitis C (167298666) Chronic viral hepatitis C (B18.2) Active confirmed Problem Mixed hyperlipidemia (657330958) Mixed hyperlipidemia (E78.2) Active confirmed Problem Nondependent opioid abuse (138892427) Opioid use, unspecified, uncomplicated (F11.90) Active confirmed Problem Tobacco user (473061119) Nicotine dependence, cigarettes, uncomplicated (F17.210) Active confirmed Problem Bipolar affective disorder, currently manic, moderate (675787317) Bipolar disorder, current episode manic without psychotic features, moderate (F31.12) Active confirmed Problem Moderate recurrent major depression (15529639) Major depressive disorder, recurrent, moderate (F33.1) Active confirmed Problem Affective psychosis (309696265) Unspecified mood [affective] disorder (F39) Active confirmed Problem Anxiety disorder (856727150) Anxiety disorder, unspecified (F41.9) Active confirmed Problem Complete edentulism (250905535) Complete loss of teeth, unspecified cause, unspecified class (K08.109) Active confirmed Problem Chronic kidney disease stage 3A (disorder) (409523124) Chronic kidney disease, stage 3a (N18.31) Active confirmed Problem Body mass index 25-29 - overweight (964862968) Body mass index [BMI] 26.0-26.9, adult (Z68.26) Active confirmed Problem Sheltered homelessness (754226122039935) Sheltered homelessness (Z59.01) Active confirmed Problem Tension-type headache (291663979) Tension-type headache, unspecified, not intractable (G44.209) Inactive confirmed Problem Abnormal results of kidney function studies (535260004) Abnormal results of kidney function studies (R94.4) Inactive confirmed Encounters Encounter Location Date Provider Diagnosis [id number] [place] [address] 03/29/2025 Provider [facility] [address] [place] [address] 10/22/2024 Ondina Gregg Assessments Encounter Date Diagnosis [...] Insured Coverage Start Date Coverage End Date CT Medicare Part A [employer] [address] [place] [address] [id number] Jefferson Sotelo Self - patient is the insured [address] Medicaid Standard [address] [place] [address] [id number] Jefferson Sotelo Self - patient is the [...] his teeth-throught out fa lse teeth 03/04 [facility] (detox 20 times) 11/29 [facility]-also [facility] 06/2012 several detoxes
[2025-03-30 15:22] LABS: Troponin-I High Sensitivity 8.5 ng/L (<3.5-35.0)
--- NOTE | 2025-03-30 16:11 | ED_ITS ---
HPI - Chest Pain General Chief Complaint: Chest Pain Stated Complaint: CHEST PAIN HEADACHE Time Seen by Provider: 03/30/25 16:01 History of Present Illness HPI narrative: Patient is a 69-year-old male with a long history of smoking. Positive history of EtOH presents today with having coughing chest pain that started about 2 hours prior. It goes to the neck patient claims that there is left-sided neck pain. There is no fever no chills no diaphoresis chest pain is not made worse with deep inspiration. Patient is from home. No nausea no vomiting no diaphoresis. Positive history of smoking no history of hypertension, hypercholesterolemia, mi. No family history of [place]. Patient is homeless. No leg swelling. No history of blood clots. Not on blood thinners. No risk stratification done in the past. No weight loss. Related Data Home Medications ?Medication ?Instructions ?Recorded ?Confirmed No Known Home Meds 03/12/25 03/12/25 Allergies Allergy/AdvReac Type Severity Reaction Status Date / Time No Known Allergies (No Known Allergy Verified 03/30/25 14:33 Allergies*) Review of Systems 2 Review of Systems: Positive coughing upper respiratory symptoms positive chest pain Yes all other systems are reviewed and are negative [facility] Past Medical History Attestation statement: The following information was validated with the patient. Medical History Hernia Surgical History History of hernia surgery Social History Social History Household Members: Other Household Members Other:: pt homeless and lives at times in senior living and w/friends Housing: Homeless Do you presently have visiting nurse or other home services: No Alcohol intake: current Alcohol intake frequency: 3 or more drinks per day Alcohol type: hard liquor Comment: 15 min checks Patient Tobacco Use Status: Current everyday Tobacco user Tobacco use type: Cigarette Substance Use Type: Crack/Cocaine and Marijuana Advance Directives: No Advance Directives Information Provided: Yes Do you have a plan to hurt others: No Plan service: No Sexual orientation: Straight/Heterosexual Physical Exam 2 Exam: Exam: Appearance: Alert. Oriented X3. No acute distress. Eyes: Pupils equal, round and reactive to light. ENT: Pharynx normal. Neck: Normal inspection. Neck supple. No lymph nodes noted. No crepitus CVS: Normal heart rate and rhythm. Pulses normal. Normal S1 and S2 Respiratory: No respiratory distress. Breath sounds normal. No Wheezing. No rales Abdomen: Soft and nontender. No rigidity. No distention. good BS x4 Skin: Skin warm and dry. Normal skin color. Normal skin turgor. Extremities: No lower extremity edema. Neurovascular intact to all extremities. No Lacerations. No Rash Neuro: Oriented X 3. No motor deficit. No sensory deficit. Moving all extermities. No slurred speech Vital Signs: Vital Signs: Last Vital Signs Temp 98.5 F 03/30/25 16:32 Pulse 73 03/30/25 16:32 Resp 20 03/30/25 16:32 BP 115/65 03/30/25 16:32 Pulse Ox 97 03/30/25 16:32 O2 Del Method Room Air 03/30/25 16:32 BMI result Body Mass Index 24.6 Medical Decision Making Medical Decision Making [facility] Narrative: My interpretation patient's EKG showed a sinus rhythm heart rate is 60 RI QRS QTC normal no acute ST segment elevation. First set of troponin is negative. EKG is normal. Patient's chest pain is atypical for ACS he is 69 years old he is an active smoker but his troponin is negative. His EKG is normal. His heart score is a 3. Will get a 2nd set of troponin in about 2 hours. A chest x-ray was ordered to rule out the possibility of pneumonia pneumothorax. COVID flu RSV was sent. Patient's history not consistent with PE. 2 sets of enzymes are negative. Patient well-appearing pain is gone blood patient follow-up outpatient. Differential Diagnosis Differential Diagnoses: The differential diagnosis associated with the presentation includes Chest pain ACS pneumonia PE upper respiratory infection Admission/Observation Consideration of admission/observation: Escalation of care including admission/observation considered Lab Data [facility] Lab Attestation statement: I reviewed the patient's lab results. 03/30/25 14:53 03/30/25 14:53 Labs: Lab Results 03/30/25 03/30/25 03/30/25 Range/Units 14:53 18:28 18:30 WBC 8.9 (4.8-10.8) X10*3/uL RBC 4.46 L (4.60-5.80) X10*6/uL Hgb 14.2 (14.0-18.0) g/dl Hct 40.9 L (42.0-52.0) % MCV 91.7 (80.0-98.0) fL MCH 31.8 (27.0-33.0) pg MCHC 34.7 (31.0-36.0) g/dl RDW 13.8 (11.0-16.0) % Plt Count 168 (160-400) X10*3/uL MPV 9.5 (9.4-12.4) fL Immature Gran % (Auto) 0.3 (0.0-0.4) % Neut % (Auto) 64.6 (45-73) % Lymph % (Auto) 22.1 (20-40) % Barber % (Auto) 10.2 (2-11) % Eos % (Auto) 2.1 (0-4) % Baso % (Auto) 0.7 (0-2) % Lymph # (Auto) 2.0 (1.2-4.9) X10*3/uL Barber # (Auto) 0.9 (0.1-1.2) X10*3/uL Eos # (Auto) 0.2 (0.0-0.4) X10*3/uL Baso # (Auto) 0.1 (0.0-0.2) X10*3/uL Abs Immat Gran (auto) 0.03 (0.00-0.03) X10*3/uL Absolute Neuts (auto) 5.7 (2.0-8.3) x10*3/uL Absolute Nucleated RBC 0.000 (0.0-0.012) X10*3/uL Nucleated RBC % (auto) 0.0 (0.0-0.2) /100WBC Sodium 142 (135-145) mmol/L Potassium 4.1 (3.3-5.1) mmol/L Chloride 106 (96-108) mmol/L Carbon Dioxide 23 (22-29) mmol/L Anion Gap 17 (12-20) BUN 14 (9-16) mg/dL Creatinine 1.09 (0.5-1.4) mg/dL Estim Creat Clear Calc 61.8 Estimated GFR > 60 Random Glucose 78 (60-115) mg/dL Calcium 9.2 (8.4-10.2) mg/dL Total Bilirubin 0.7 (0.0-1.0) mg/dL AST 36 (5-37) U/L ALT 27 (0-40) U/L Alkaline Phosphatase 61 (39-117) U/L Troponin I High Sens 8.5 8.0 (<3.5-35.0) ng/L Total Protein 6.9 (6.5-8.0) g/dL Albumin 4.4 (3.5-5.0) g/dL Ethyl Alcohol 22 mg/dL Influenza Type A (PCR) NEGATIVE (Negative) Influenza Type B (PCR) NEGATIVE (Negative) RSV RNA Qual (PCR) NEGATIVE (Negative) SARS-CoV-2 RNA (RT-PCR) NEGATIVE (Negative) Independent Interpretation I performed an independent interpretation of an: EKG (Sinus heart rate is 60 RI QRS QTC normal no acute ST segment elevation) Radiology Impression Discussion of test interpretation with radiology: I have reviewed the radiologist's reading. Social Determinants Patient?s care significantly limited by Social Determinants of Health including: Problems related to primary support group and Unemployment Discharge Plan Discharge Clinical Impression: Chest pain Patient Disposition: Home, Self-Care Instructions: Chest Pain (DC) Additional Instructions: Please follow-up closely for your chest pain. Worsening condition return. Prescriptions: No Action No Known Home Meds Referrals: William David MD [Physician, Cardiology] - 04/01/25 Print Language: Scottish
[2025-03-30 16:32] VITALS: BP 115/65; PULSE 73; RESP 20; TEMP 36.9; O2SAT 97
[2025-03-30 18:55] LABS: Troponin-I High Sensitivity 8.0 ng/L (<3.5-35.0)
[2025-03-30 19:12] LABS: Resp Syncy Virus RNA Qual PCR NEGATIVE (Negative); SARS COV2 PCR INHOUSE NEGATIVE (Negative)
[2025-03-30 19:44] VITALS: BP 129/88; PULSE 55; RESP 14; TEMP 36.7; O2SAT 94
== END 2025-03-30 19:45 | disposition home or self-care (01) ==
PROVIDERS: Emergency Provider Emergency Medicine Emergency Medical Services
DX: R07.89 Other chest pain (principal); R51.9 Headache, unspecified; R05.9 Cough, unspecified; Z03.818 Encounter for observation for suspected exposure to other biological agents ruled out; Z51.81 Encounter for therapeutic drug level monitoring; Z79.899 Other long term (current) drug therapy
CPT/HCPCS: 36415; 71045; 80053; 80307; 84484; 85025; 87637; 93005; 99283; 99285

== ENCOUNTER → 2025-03-30 14:26 | Outpatient (BNV) | payer MEDICARE, MEDICAID, SELFPAY | PROVIDERS: Emergency Provider Emergency Medicine Emergency Medical Services; Visit Provider Internal Medicine | DX: R07.9 Chest pain, unspecified (principal) | CPT/HCPCS: 93010 ==

== ENCOUNTER → 2025-03-30 16:10 | Outpatient (BNV) | payer MEDICARE, MEDICAID, SELFPAY | PROVIDERS: Emergency Provider Emergency Medicine Emergency Medical Services; Visit Provider Radiology Diagnostic Radiology | DX: R07.9 Chest pain, unspecified (principal) | CPT/HCPCS: 71045 ==

== ENCOUNTER 2025-06-17 19:57 | Emergency (ER) | payer MEDICARE, SELFPAY ==
[2025-06-17 20:05] VITALS: BP 155/97; PULSE 56; O2SAT 97
[2025-06-17 20:06] VITALS: BP 149/74; PULSE 76; RESP 16; TEMP 36.3; O2SAT 97; BMI 22.5
--- NOTE | 2025-06-17 20:58 | ED_ITS ---
HPI - General Adult General Chief complaint: Headache Stated complaint: Headache 1 drink from [employer] Time Seen by Provider: 06/17/25 20:58 History of Present Illness ED Provider: Jackelin DE LA CRUZ narrative: The patient is a 69-year-old male who says that at approximately 07:00 this evening he developed a headache that he found extremely uncomfortable. He is a homeless 69-year-old. 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 He says that he had had a lot of jobs during the day shoveling. He says that at some point during the day he felt that he had some difficulty speaking. He says this occurred before the onset of the headache. He also admits to having had alcohol and to having smoked some crack. The patient says he does not usually get headaches. Related Data Home Medications ?Medication ?Instructions ?Recorded ?Confirmed No Known Home Meds 03/12/25 03/12/25 Allergies Allergy/AdvReac Type Severity Reaction Status Date / Time No Known Allergies (No Known Allergy Verified 06/17/25 20:17 Allergies*) Review of Systems 2 Review of Systems: Yes all other systems are reviewed and are negative [facility] Past Medical History Medical History Hernia Surgical History History of hernia surgery Social History Social History Household Members: Other Household Members Other:: pt homeless and lives at times in [facility] and w/friends Housing: Homeless Do you presently have visiting nurse or other home services: No Alcohol intake: current Alcohol intake frequency: 3 or more drinks per day Alcohol type: hard liquor Comment: 15 min checks Patient Tobacco Use Status: Current everyday Tobacco user Tobacco use type: Cigarette Substance Use Type: Crack/Cocaine and Marijuana Advance Directives: No Advance Directives Information Provided: No service: No Sexual orientation: Straight/Heterosexual Physical Exam ED Vital Signs: Vital Signs - 24 hr 06/17/25 20:06 06/17/25 22:00 06/17/25 23:43 Temperature 97.3 F 97.7 F Pulse Rate 76 72 79 Respiratory Rate 16 18 18 Blood Pressure 149/74 H 141/84 H 138/76 Pulse Oximetry 97 100 99 Oxygen Delivery Method Nasal Cannula Room Air Room Air 06/18/25 00:25 Temperature 0 F L Pulse Rate 79 Respiratory Rate 18 Blood Pressure 138/76 Pulse Oximetry 99 Oxygen Delivery Method Room Air BMI result Body Mass Index 22.5 Const Other: The patient is a 69-year-old male who looks relatively healthy. He does not appear in acute distress. He is a slim, somewhat athletic looking 69-year-old. HENTN Other: The face is symmetrical. ?Mucous membranes moist. Eyes Other: Pupils are round equal, conjunctivae are clear, extraocular movements intact Neck Other: The neck seems entirely supple. He can touch his chin to his chest easily. Neck: Yes normal visual inspection, Yes full ROM, Yes no lymphadenopathy and Yes no meningeal signs Resp Effort & Inspection: normal respiratory effort Auscultation: clear to auscultation bilaterally Cardio Rate: regular rate Rhythm: regular rhythm Heart sounds: S1 normal heart sound present and S2 normal heart sound present GI Other: Abdomen is soft and nontender Skin Other: The skin is dry and unremarkable Neuro Other: The patient is awake and alert does not appear in acute distress. GCS is 15. Mental status is clear and normal. Pupils are round equal, extraocular movements are intact, the face is symmetrical, speech is clear and normal, neck is entirely supple, he moves his extremities normally and seems completely neurologically intact. General: no meningeal signs Extrem Other: There is no calf swelling or tenderness. No asymmetry. No peripheral edema. Medications Administered Discontinued Medications Generic Name Dose Route Start Last Admin Trade Name Kalebq PRN Reason Stop Dose Admin Acetaminophen 975 mg 06/17/25 22:46 06/17/25 23:00 Acetaminophen 325 Mg Tablet PO 06/17/25 22:47 975 mg ONCE ONE Administration Ibuprofen 400 mg 06/17/25 22:46 06/17/25 23:00 Ibuprofen 400 Mg Tablet PO 06/17/25 22:47 400 mg ONCE ONE Administration Medical Decision Making Medical Decision Making MDM Narrative: The patient is a 69-year-old male who comes to the emergency room complaining of a headache that began at around 19:00 this evening. Clinically the patient looks entirely well. He has a supple neck and a normal neurological exam. He has a negative head CT that was done within 6 hours of the onset of his headache. Given my low clinical suspicion for a subarachnoid hemorrhage I think this negative head CT essentially rules out a subarachnoid hemorrhage as a cause of his headache. I do not have any suspicion for meningitis or other dangerous cause of headache. Potentially the patient is here because he is homeless in the weather is very bad outside. The patient was given a dose of ibuprofen and a dose of acetaminophen. He will be discharged to the waiting room. He does not have a primary care doctor. He says that he usually lives in the [place] area. He is advised to go to the homeless [facility] clinic on [facility] to try to establish primary care. Lab Data 06/17/25 20:54 06/17/25 20:54 Labs: Lab Results 06/17/25 Range/Units 20:54 WBC 8.4 (4.8-10.8) X10*3/uL RBC 4.97 (4.60-5.80) X10*6/uL Hgb 15.6 (14.0-18.0) g/dl Hct 46.4 (42.0-52.0) % MCV 93.4 (80.0-98.0) fL MCH 31.4 (27.0-33.0) pg MCHC 33.6 (31.0-36.0) g/dl RDW 13.4 (11.0-16.0) % Plt Count 144 L (160-400) X10*3/uL MPV 9.8 (9.4-12.4) fL Immature Gran % (Auto) 0.2 (0.0-0.4) % Neut % (Auto) 68.0 (45-73) % Lymph % (Auto) 22.8 (20-40) % Elmore % (Auto) 7.2 (2-11) % Eos % (Auto) 0.9 (0-4) % Baso % (Auto) 0.9 (0-2) % Lymph # (Auto) 1.9 (1.2-4.9) X10*3/uL Elmore # (Auto) 0.6 (0.1-1.2) X10*3/uL Eos # (Auto) 0.1 (0.0-0.4) X10*3/uL Baso # (Auto) 0.1 (0.0-0.2) X10*3/uL Abs Immat Gran (auto) 0.02 (0.00-0.03) X10*3/uL Absolute Neuts (auto) 5.7 (2.0-8.3) x10*3/uL Absolute Nucleated RBC 0.000 (0.0-0.012) X10*3/uL Nucleated RBC % (auto) 0.0 (0.0-0.2) /100WBC Sodium 147 H (135-145) mmol/L Potassium 3.7 (3.3-5.1) mmol/L Chloride 108 (96-108) mmol/L Carbon Dioxide 28 (22-29) mmol/L Anion Gap 15 (12-20) BUN 14 (9-16) mg/dL Creatinine 1.08 (0.5-1.4) mg/dL Estim Creat Clear Calc 61.1 Estimated GFR > 60 Random Glucose 84 (60-115) mg/dL Calcium 9.4 (8.4-10.2) mg/dL Magnesium 2.1 (1.6-2.6) mg/dL Total Bilirubin 0.4 (0.0-1.0) mg/dL AST 22 (5-37) U/L ALT 17 (0-40) U/L Alkaline Phosphatase 62 (39-117) U/L Total Protein 7.5 (6.5-8.0) g/dL Albumin 4.9 (3.5-5.0) g/dL Ethyl Alcohol 99 mg/dL Influenza Type A (PCR) NEGATIVE (Negative) Influenza Type B (PCR) NEGATIVE (Negative) RSV RNA Qual (PCR) NEGATIVE (Negative) SARS-CoV-2 RNA (RT-PCR) NEGATIVE (Negative) Discharge Plan Discharge Clinical Impression: Headache Patient Disposition: Home, Self-Care Additional Instructions: Your testing in the emergency room today seems very reassuring. I do not think there is a dangerous cause of your headache. Please do your best to reduce smoking. Also avoid using crack cocaine. Who would be good for you to get a regular doctor. Since you spent most of your time and [place] I would recommend that you go to the [facility] at [address] [place] [address] in [place]. I believe you might be able to get help getting a primary care doctor there. Return to the emergency room if significantly worse. Prescriptions: No Action No Known Home Meds Interventions: ED Discharge Assessment Last Done: 06/18/25 00:25 Discharge Date/Time: 06/18/25 00:26 Print Language: Welsh
[2025-06-17 21:00] LABS: Hematocrit 46.4 % (42.0-52.0); Hemoglobin 15.6 g/dl (14.0-18.0); Imm Gran Abs Auto 0.02 X10*3/uL (0.00-0.03); Imm Gran Pct Auto 0.2 % (0.0-0.4); Lymphocytes Absolute Auto 1.9 X10*3/uL (1.2-4.9); MANUAL DIFF FLAG NO; Mean Corpuscular HGB Conc 33.6 g/dl (31.0-36.0); Mean Corpuscular Hemoglobin 31.4 pg (27.0-33.0); Mean Corpuscular Volume 93.4 fL (80.0-98.0); NRBC Abs Auto 0.000 X10*3/uL (0.0-0.012); NRBC Pct Auto 0.0 /100WBC (0.0-0.2); Platelet Count 144 X10*3/uL (160-400); Red Blood Count 4.97 X10*6/uL (4.60-5.80); White Blood Count 8.4 X10*3/uL (4.8-10.8)
--- NOTE | 2025-06-17 21:08 | ECG_ITS ---
Test Reason : headache Blood Pressure : */* mmHG Vent. Rate : 67 BPM Atrial Rate : 67 BPM P-R Int : 196 ms QRS Dur : 74 ms QT Int : 390 ms P-R-T Axes : 74 20 49 degrees QTcB Int : 412 ms Artifact in tracing Normal sinus rhythm Normal ECG When compared with ECG of 30-Mar-2025 14:28, No significant change was found Referred By: Lavell Benítez Electronically Signed By: ADRIENNE MARQUEZ
[2025-06-17 21:15] LABS: Alanine Aminotransferase 17 U/L (0-40); Albumin Level 4.9 g/dL (3.5-5.0); Alkaline Phosphatase 62 U/L (39-117); Anion Gap 15 (12-20); Aspartate Amino Transferase 22 U/L (5-37); Blood Urea Nitrogen 14 mg/dL (9-16); Calcium 9.4 mg/dL (8.4-10.2); Carbon Dioxide 28 mmol/L (22-29); Chloride 108 mmol/L (96-108); Creatinine Clr Calc Pharmacy 61.1; Estimated Glomerular Filt Rate > 60; Magnesium 2.1 mg/dL (1.6-2.6); Potassium 3.7 mmol/L (3.3-5.1); Sodium 147 mmol/L (135-145); Total Protein 7.5 g/dL (6.5-8.0)
--- OUTSIDE RECORDS SUMMARY | 2025-06-17 21:16 | XMS_ITS | Clinical Summary ---
Author Organization [facility] Address [address] [place] [id number] Phone Care Team Providers Care Windscreen Fitter Name Role Phone Pcp, Unknown Primary Care [...] 11/04/2020 INFLUENZA VACCINE (#1) 2025 COVID-19 VACCINE (2024-2 6 season) 2025 RSV VACCINE (1 - 1-dose [...] file Insurance MEDICARE PART A & B Member Subscriber Plan / Payer (Ef fective 2023-) Name:Ashleigh Jefferson Member ID:[id number] Relation to Subscriber:Self Name:Jefferson Sotelo Subscriber ID:[id number] Payer ID:[id number] Group ID:Not on file Type:Medicare Address: [employer] [address] [place], [place] [id number] [place] Care Teams Windscreen Fitter Relationship Specialty Start Date End Date Pcp, Unknown PCP - General 06/22/24 Additional Source Comments The information contained in this document represents components of the legal health record. It is not the complete legal health record.[facility]
[2025-06-17 21:36] LABS: Resp Syncy Virus RNA Qual PCR NEGATIVE (Negative); SARS COV2 PCR INHOUSE NEGATIVE (Negative)
[2025-06-17 22:00] VITALS: BP 141/84; PULSE 72; RESP 18; TEMP 36.5; O2SAT 100
[2025-06-17 23:43] VITALS: BP 138/76; PULSE 79; RESP 18; O2SAT 99
[2025-06-18 00:25] VITALS: BP 138/76; PULSE 79; RESP 18; TEMP -17.7; TEMP 0; O2SAT 99
== END 2025-06-18 00:26 | disposition home or self-care (01) ==
PROVIDERS: Emergency Provider Emergency Medicine
DX: R51.9 Headache, unspecified (principal); Z03.818 Encounter for observation for suspected exposure to other biological agents ruled out; F17.200 Nicotine dependence, unspecified, uncomplicated; Z71.6 Tobacco abuse counseling; Z59.00 Homelessness unspecified; F10.90 Alcohol use, unspecified, uncomplicated; Y90.4 Blood alcohol level of 80-99 mg/100 ml
CPT/HCPCS: 36415; 70450; 80053; 80307; 83735; 85025; 87637; 93005; 99284; 99285

== ENCOUNTER → 2025-06-17 21:03 | Outpatient (BNV) | payer MEDICARE, MEDICAID, SELFPAY | PROVIDERS: Emergency Provider Emergency Medicine; Visit Provider Student in an Organized Health Care Education/Training Program | DX: R51.9 Headache, unspecified (principal) | CPT/HCPCS: 70450 ==

== ENCOUNTER → 2025-06-17 21:08 | Outpatient (BNV) | payer MEDICARE, MEDICAID, SELFPAY | PROVIDERS: Emergency Provider Emergency Medicine; Visit Provider Internal Medicine | DX: R51.9 Headache, unspecified (principal) | CPT/HCPCS: 93010 ==